=== PATIENT | female | born 1955 | race Hispanic/Latino ===

== ENCOUNTER 2017-11-07 10:05 | Inpatient (IN) | payer OTHER ==
[2017-11-07] MEDS ORDERED: Sodium Chloride 0.9% 1,000 ML IV STA ×2 (10:15→12:19)
[2017-11-07 10:25] VITALS: BMI 30.2
[2017-11-07 10:43] LABS: VENOUS BLOOD GAS BASE EXCESS 3.8 mmol/L (0.0-2.0); VENOUS BLOOD GAS PO2 43 mm/Hg (30-55); VENOUS BLOOD PH 7.54 (7.32-7.43)
[2017-11-07 10:56] LABS: ALT/SGPT 76 U/L (7-56); AST/SGOT 138 U/L (14-36); BLOOD UREA NITROGEN 15 mg/dL (7-21); CALCIUM 8.4 mg/dL (8.4-10.5); GFR AFRICAN-AMERICAN > 60; GFR NON-AFRICAN AMERICAN > 60
[2017-11-07] MEDS ORDERED: TDAP Vaccine 0.5 mL Syr IM ONE (10:58)
[2017-11-07 11:04] LABS: GRAN # 10.27 (1.4-6.5); GRAN % 92.8 % (50.0-68.0); HEMOGLOBIN 13.7 g/dL (12.0-16.0); LYMPH # 0.5 (1.2-3.4); LYMPH % 4.5 % (22.0-35.0); MEAN CELL VOLUME 89.9 fl (80.0-105.0); MEAN CORPUSCULAR HEMOGLOBIN 33.1 pg (25.0-35.0); MEAN CORPUSCULAR HGB CONC 36.8 g/dl (31.0-37.0); MONO # 0.3 (0.1-0.6); MONO % 2.7 % (1.0-6.0); PLATELET COUNT 146 10^3/uL (120.0-450.0); RBC 4.14 10^6/uL (3.5-6.1); RED CELL DISTRIBUTION WIDTH 13.7 % (11.5-14.5); WHITE BLOOD COUNT 11.1 10^3/ul (4.5-11.0)
[2017-11-07 11:07] LABS: TROPONIN I 0.02 ng/mL
[2017-11-07 11:13] LABS: INR 1.07 (0.93-1.08); PARTIAL THROMBOPLASTIN TIME 33.1 Seconds (25.1-36.5); PROTHROMBIN TIME 12.3 SECONDS (9.4-12.5)
--- NOTE | 2017-11-07 11:13 | ED PDOC ---
Arrival/HPI - General Chief Complaint: Weakness/Neurological Deficit Time Seen by Provider: 11/07/17 10:11 Historian: Patient, Family - History of Present Illness Narrative History of Present Illness (Text): 11/07/17 10:13 62 year old female, with past medical history of hypertension and recent URI nos on day 4 of Ceftin, presents to the Emergency department complaining of increasing malaise, weakness and somnolence since past few days. Patient informs associated diffused myalgia, decreased appetite and PO intake culminating in the family finding her with decreased responsiveness this morning. As per family, patient was getting out of her bed when she fell and hit her nose this morning. Due to patient's decreased hearing, most history was achieved from family. Family denies hitting her head or loss of consciousness. Patient expresses mild headache but denies any fever, chills, nausea, diarrhea, abdominal pain, chest pain, shortness of breath or any other complaints. Patient presents to the Emergency department for medical evaluation. Upon arrival to the Emergency department, patient had one episode of emesis. Time/Duration: < week Symptom Onset: Gradual Symptom Course: Unchanged Activities at Onset: Light Context: Home Past Medical History - Provider Review Nursing Documentation Reviewed: Yes - Cardiac Hx Hypertension: Yes - HEENT Hx Deafness: Yes - Psychiatric Hx Substance Use: No - Surgical History Hx Musculoskeletal Surgery: Yes (bilateral knees) Other/Comment: left ear and sinus Family/Social History - Physician Review Nursing Documentation Reviewed: Yes Family/Social History: No Known Family HX Smoking Status: Former Smoker Hx Alcohol Use: No Hx Substance Use: No Allergies/Home Meds Allergies/Adverse Reactions: Allergies Sulfa (Sulfonamide Antibiotics) Allergy (Verified 11/07/17 10:25) ANAPHYLAXIS Home Medications: Home Meds Medication Instructions Recorded Confirmed Triamterene/Hydrochlorothiazid 1 each PO DAILY 11/07/17 11/07/17 [Maxzide 75 mg-50 mg Tablet] Review of Systems - Physician Review All systems were reviewed & negative as marked: Yes - Review of Systems Constitutional: Normal. absent: Fevers Eyes: Normal ENT: Normal Respiratory: Normal. absent: SOB Cardiovascular: Normal. absent: Chest Pain Gastrointestinal: Vomiting. absent: Abdominal Pain, Diarrhea, Nausea Genitourinary Female: Normal Musculoskeletal: Myalgias, Other (general weakness and malaise.) Skin: Laceration, Other (abrasion on nose bridge) Neurological: Other (generalized weakness) Endocrine: Normal Hemo/Lymphatic: Normal Psychiatric: Normal Physical Exam Vital Signs Reviewed: Yes Vital Signs Temp Pulse Resp BP Pulse Ox 11/07/17 13:25 98.3 F 92 H 18 133/75 11/07/17 13:03 98.3 F 92 H 17 133/75 98 11/07/17 12:02 90 17 102/73 98 11/07/17 10:43 100.4 F H 11/07/17 10:11 100.4 F H 120 H 19 139/83 96 Temperature: Febrile Blood Pressure: Normal Pulse: Tachycardic Respiratory Rate: Normal Appearance: Positive for: Well-Appearing, Non-Toxic, Comfortable Pain Distress: None Mental Status: Positive for: Alert and Oriented X 3 Finger Stick Blood Glucose: 155 - Systems Exam Head: Present: Atraumatic, Normocephalic Pupils: Present: PERRL Extroacular Muscles: Present: EOMI Conjunctiva: Present: Normal Mouth: Present: Moist Mucous Membranes Nose (External): Present: Abrasion (bridge of her nose) Respiratory/Chest: Present: Clear to Auscultation, Good Air Exchange. No: Respiratory Distress, Accessory Muscle Use Cardiovascular: Present: Regular Rate and Rhythm, Normal S1, S2. No: Murmurs Abdomen: No: Tenderness, Distention, Peritoneal Signs Back: Present: Normal Inspection Upper Extremity: Present: Normal Inspection. No: Cyanosis, Edema Lower Extremity: Present: Normal Inspection. No: Edema Neurological: Present: GCS=15, CN II-XII Intact, Speech Normal Skin: Present: Warm, Dry, Normal Color. No: Rashes Psychiatric: Present: Alert, Oriented x 3, Normal Insight, Normal Concentration Medical Decision Making ED Course and Treatment: 11/07/17 10:13 Impression: 62 year old female presents to the Emergency department for generalized weakness and malaise. Plan: -- CT of Head -- VBG -- EKG -- Labs -- Chest X-ray -- TDAP -- IV Fluids -- Tylenol -- Zofran -- Blood Culture -- Urine Culture -- Urinalysis -- Rapid flu A/B -- Reassess and disposition Progress Notes: 11/07/17 12:12 CT of head reviewed by radiologist, shows: FINDINGS: HEMORRHAGE: No intracranial hemorrhage. BRAIN: No mass effect or edema. No atrophy or chronic microvascular ischemic changes. VENTRICLES: Unremarkable. No hydrocephalus. CALVARIUM: Unremarkable. PARANASAL SINUSES: Unremarkable as visualized. No significant inflammatory changes. MASTOID AIR CELLS: Unremarkable as visualized. No inflammatory changes. OTHER FINDINGS: None. IMPRESSION: No acute intracranial abnormalities. No significant findings to account for the clinical presentation. 11/07/17 14:05 Chest X-ray reviewed by radiologist, shows: FINDINGS: LUNGS: No active pulmonary disease. PLEURA: No significant pleural effusion identified, no pneumothorax apparent. CARDIOVASCULAR: No radiographic findings to suggest acute or significant cardiovascular disease. OSSEOUS STRUCTURES: No significant abnormalities. VISUALIZED UPPER ABDOMEN: Normal. OTHER FINDINGS: None. IMPRESSION: No active disease. 11/07/17 17:35 ekg: afib w/ rvr noischemic st-t segments, non-arrythmogenic intervals - Lab Interpretations Lab Results: 11/07/17 10:39 11/07/17 10:39 Lab Results 11/07/17 10:39: Sodium 126 L, Chloride 88 L, Potassium 3.0 L, Carbon Dioxide 24 , Anion Gap 17, BUN 15, Creatinine 0.9, Est GFR ( Amer) > 60, Est GFR ( Non-Af Amer) > 60, Random Glucose 166 H, Calcium 8.4, Magnesium 1.7, Total Bilirubin 0.5, AST 138 H, ALT 76 H, Alkaline Phosphatase 76, Lactate Dehydrogenase 822 H, Total Creatine Kinase 302 H, CK-MB (CK-2) 0.4, CK-MB (CK-2 ) % Cancelled, Troponin I 0.02, Total Protein 8.0, Albumin 4.0, Globulin 4.0, Albumin/Globulin Ratio 1.0 L 11/07/17 10:39: pO2 43, VBG pH 7.54 H, VBG pCO2 30.0 L, VBG HCO3 25.7, VBG Total CO2 26.6, VBG O2 Sat (Calc) 89.3 H, VBG Base Excess 3.8 H, VBG Potassium 2.7 L, Sodium 123.0 L, Chloride 89.0 L, Glucose 166 H, Lactate 1.9, FiO2 21.0, Venous Blood Potassium 2.7 L 11/07/17 10:39: PT 12.3, INR 1.07, APTT 33.1 11/07/17 10:39: WBC 11.1 H, RBC 4.14, Hgb 13.7, Hct 37.2, MCV 89.9, MCH 33.1, MCHC 36.8, RDW 13.7, Plt Count 146, MPV 10.0, Gran % 92.8 H, Lymph % (Auto) 4.5 L, Callahan % (Auto) 2.7, Eos % (Auto) 0.0 L, Baso % (Auto) 0.0, Gran # 10.27 H, Lymph # (Auto) 0.5 L, Callahan # (Auto) 0.3, Eos # (Auto) 0.0, Baso # (Auto) 0.00, Neutrophils % (Manual) 90 H, Band Neutrophils % 3 H, Lymphocytes % (Manual) 6 L , Monocytes % (Manual) 1, Toxic Granulation Slight, Platelet Evaluation Normal, Anisocytosis (manual) Slight - RAD Interpretation Radiology Orders: 11/07/17 10:15 CHEST PORTABLE [RAD] Stat 11/07/17 10:58 HEAD W/O CONTRAST [CT] Stat Batter Depositor: Radiologist - Medication Orders Current Medication Orders: Ceftriaxone Sodium (Rocephin 1 Gram Ivpb) 1 gm in 100 mls @ 100 mls/hr IVPB ONCE ONE PRN Reason: Protocol Stop: 11/08/17 13:03 Sodium Chloride (Sodium Chloride 0.9%) 1,000 mls @ 80 mls/hr IV .[id number] [facility] Metoprolol Tartrate (Lopressor) 25 mg PO BRKDIN CORINE Discontinued Medications Acetaminophen (Tylenol 325mg Tab) 975 mg PO STAT STA Stop: 11/07/17 10:17 Last Admin: 11/07/17 10:43 Dose: 975 mg MAR Pain/Vitals Document 11/07/17 10:43 [facility] (Rec: 11/07/17 10:43 [facility] [id number]) Pain Reassessment Is This A Pain ReAssessment? No Sleep Is patient sleeping during reassessment? No Presence of Pain Presence of Pain No Vitals Temperature (97.6 F-99.6 F) 100.4 F Temperature Source Oral Sodium Chloride (Sodium Chloride 0.9%) 1,000 mls @ 999 mls/hr IV .Q1H1M STA Stop: 11/07/17 11:15 Last Admin: 11/07/17 10:57 Dose: 999 mls/hr eMAR Start Stop Document 11/07/17 10:57 [facility] (Rec: 11/07/17 10:57 [facility] [id number]) Intravenous Solution Start Date 11/07/17 Start Time 10:57 End Date 11/07/17 End time 12:00 Total Infusion Time 63 Doxycycline Hyclate 100 mg/ (Sodium Chloride) 100 mls @ 100 mls/hr IVPB ONCE ONE PRN Reason: Protocol Stop: 11/07/17 13:05 Last Admin: 11/07/17 12:26 Dose: 100 mls/hr eMAR Start Stop Document 11/07/17 12:26 [facility] (Rec: 11/07/17 12:27 [facility] [id number]) Intravenous Solution Start Date 11/07/17 Start Time 12:27 End Date 11/07/17 End time 13:30 Total Infusion Time 63 Potassium Chloride (Potassium Chloride 20 Meq/100 Ml) 20 meq in 100 mls @ 50 mls/hr IVPB ONCE ONE Stop: 11/07/17 14:16 Last Admin: 11/07/17 12:27 Dose: 50 mls/hr eMAR Start Stop Document 11/07/17 12:27 [facility] (Rec: 11/07/17 12:27 [facility] [id number]) Intravenous Solution Start Date 11/07/17 Start Time 12:27 End Date 11/07/17 End time 14:30 Total Infusion Time 123 Sodium Chloride (Sodium Chloride 0.9%) 1,000 mls @ 999 mls/hr IV .Q1H1M STA Stop: 11/07/17 13:19 Last Admin: 11/07/17 12:28 Dose: 999 mls/hr eMAR Start Stop Document 11/07/17 12:28 [facility] (Rec: 11/07/17 12:28 [facility] [id number]) Intravenous Solution Start Date 11/07/17 Start Time 12:28 End Date 11/07/17 End time 13:30 Total Infusion Time 62 Sodium Chloride (Sodium Chloride 0.9%) 100 mls @ 80 mls/hr IV .Q1H15M [facility] Ondansetron HCl (Zofran Inj) 4 mg IVP STAT STA Stop: 11/07/17 10:49 Last Admin: 11/07/17 10:59 Dose: 4 mg IVP Administration Document 11/07/17 10:59 [facility] (Rec: 11/07/17 10:59 [facility] [id number]) Charges for Administration # of IVP Administrations 1 Potassium Chloride (Potassium Chloride Oral Soln) 40 meq PO STAT STA Stop: 11/07/17 12:08 Last Admin: 11/07/17 12:22 Dose: 40 meq Tetanus/Reduced Diphtheria/Acell Pertussis (Boostrix Vaccine Inj) 0.5 ml IM .ONCE ONE Stop: 11/07/17 10:59 - Scribe Statement The provider has reviewed the documentation as recorded by the Scribe Concetta Abdul. All medical record entries made by the Scribe were at my direction and personally dictated by me. I have reviewed the chart and agree that the record accurately reflects my personal performance of the history, physical exam, medical decision making, and the department course for this patient. I have also personally directed, reviewed, and agree with the discharge instructions and disposition. Disposition/Present on Arrival - Present on Arrival Any Indicators Present on Arrival: No History of DVT/PE: No History of Uncontrolled Diabetes: No Urinary Catheter: No History of Decub. Ulcer: No History Surgical Site Infection Following: None - Disposition Have Diagnosis and Disposition been Completed?: Yes Diagnosis: Upper respiratory infection, Syncope and collapse, New onset a-fib Disposition: HOSPITALIZED Disposition Time: 14:15 Patient Plan: Admission, Telemetry Condition: FAIR
[2017-11-07 11:14] LABS: CK-MB 0.4 ng/mL (0.0-3.6)
[2017-11-07 11:45] LABS: ANISOCYTOSIS SLIGHT; BAND 3 % (0-2); LYMPHOCYTE 6 % (22.0-35.0); MONOCYTE 1 % (1.0-6.0); NEUTROPHIL 90 % (50.0-70.0); PLATELET ESTIMATE NORMAL (NORMAL); TOXIC GRANULATION SLIGHT
[2017-11-07] MEDS ORDERED: Potassium Chloride 40 mEq/30 ml LIQ UD PO STA (12:07)
--- NOTE | 2017-11-07 12:08 | CT ---
PROCEDURE: CT HEAD WITHOUT CONTRAST. HISTORY: trauma COMPARISON: None available. TECHNIQUE: Axial computed tomography images were obtained through the head/brain without intravenous contrast. Coronal and sagittal reconstructed images. Radiation dose: Total exam DLP = 87.24 mGy-cm. This CT exam was performed using one or more of the following dose reduction techniques: Automated exposure control, adjustment of the mA and/or kV according to patient size, and/or use of iterative reconstruction technique. FINDINGS: HEMORRHAGE: No intracranial hemorrhage. BRAIN: No mass effect or edema. No atrophy or chronic microvascular ischemic changes. VENTRICLES: Unremarkable. No hydrocephalus. CALVARIUM: Unremarkable. PARANASAL SINUSES: Unremarkable as visualized. No significant inflammatory changes. MASTOID AIR CELLS: Unremarkable as visualized. No inflammatory changes. OTHER FINDINGS: None. IMPRESSION: No acute intracranial abnormalities. No significant findings to account for the clinical presentation.
--- NOTE | 2017-11-07 12:35 | RAD ---
HISTORY: routin emed exam COMPARISON: No prior. FINDINGS: LUNGS: No active pulmonary disease. PLEURA: No significant pleural effusion identified, no pneumothorax apparent. CARDIOVASCULAR: No radiographic findings to suggest acute or significant cardiovascular disease. OSSEOUS STRUCTURES: No significant abnormalities. VISUALIZED UPPER ABDOMEN: Normal. OTHER FINDINGS: None. IMPRESSION: No active disease.
--- NOTE | 2017-11-07 13:03 | CARD ---
APPROVED REPORT EKG Measurement Heart [id number] <Conclusion> Atrial fibrillation with rapid ventricular response ST & T wave abnormality, consider inferior ischemia or digitalis effect Abnormal ECG
[2017-11-07] MEDS ORDERED: Sodium Chloride 0.9% 100 ML IV SCH (16:30)
[2017-11-07 16:44] LABS: URINE BILIRUBIN NEGATIVE (NEGATIVE); URINE BLOOD LARGE (NEGATIVE); URINE GLUCOSE (UA) NEGATIVE (NEGATIVE); URINE LEUKOCYTE ESTERASE NEGATIVE Leu/uL (NEGATIVE); URINE PROTEIN >=300 mg/dL (<30 mg/dL); URINE UROBILINOGEN 0.2 E.U./dL (<1 E.U./dL)
[2017-11-07 16:46] LABS: URINE APPEARANCE CLEAR (CLEAR); URINE COLOR YELLOW (YELLOW)
[2017-11-07 17:08] LABS: URINE COARSE GRANULAR CAST TRACE /hpf (0-2); URINE FINE GRANULAR CAST 0 - 2 /hpf (0-2)
[2017-11-07 17:32] LABS: TROPONIN I 0.02 ng/mL
[2017-11-07] MEDS: Sodium Chloride 0.9% 1,000 ML IV SCH (17:33)
[2017-11-07 17:44] LABS: CK-MB 0.9 ng/mL (0.0-3.6)
[2017-11-07] MEDS: Meropenem IV 1 gm in NS 50 ML IVPB SCH ×2 (18:56→21:53)
[2017-11-07] MEDS: Vancomycin 1gm in NS 250ml 1 GM/250 ML BAG IVPB SCH (19:06)
--- NOTE | 2017-11-08 00:37 | HP ---
DATE OF EXAM: 11/07/2017 HISTORY OF PRESENT ILLNESS: The patient is seen in the emergency room. She was brought in by her . She was this morning very weak. She had no appetite and she could not eat. She was feeling very dizzy and she was nauseous and the patient has hearing deficit, but it has got worse. The patient was hardly able to hear anything and the patient was brought to the emergency room for evaluation. The emergency room physician found her to be very lethargic. She has had a fall and abrasion of the anterior part of the nose, the skin abrasion. The patient has no head injury. PAST MEDICAL HISTORY: Significant that she has history of hypertension. She takes Maxzide, is a dual diuretic, potassium-sparing diuretic. The patient also takes medication for acute sinusitis and otitis. She was on Ceftin 500 mg b.i.d. The patient's past history is significant that she also had history of both knees arthroscopic surgery. The patient has had some surgical orthopedic treatment for both hands, questionable carpal tunnel. ALLERGIES: SHE IS ALLERGIC TO SULFA DRUGS, . PHYSICAL EXAMINATION GENERAL: The patient is evaluated in the ER. She is awake and alert. She is on intravenous. She is given intravenous sodium with potassium supplement. She feels better she said at this time. VITAL SIGNS: The pulse is 92, blood pressure 133/75, the patient's respirations 18, O2 saturation is 98% on room air. The patient's temperature is 98.3. The patient came in with a temperature of 100.4. She was septic and heart rate of 120 when she came into the emergency room. HEENT: Head is normocephalic as mentioned. NECK: The thyroid is not enlarged. JVP is flat. Carotid pulses are present. No lymphadenopathy. LUNGS: Trachea is central. Breath sounds are vesicular. No adventitious sound. No localizing signs. HEART: Normal sinus rhythm, S1, S2 present. Sinus tachycardia. ABDOMEN: Soft. Liver and spleen not palpable. CENTRAL NERVOUS SYSTEM: The patient is conscious, rational and oriented. She is deaf clinically at this time, unable to hear any speech. NEUROLOGIC: The patient's cranial nerves are intact Motor or sensory functions are okay. She is very unstable on standing because of her weakness. LABORATORY DATA: The patient's blood work done in the emergency room shows that sodium was 126, potassium was 3.0, sugar was 166. The patient's lactate dehydrogenase was 822 . Creatinine was . The patient's AST and ALT were elevated. The patient's albumin level is 4. The patient's CBC showed a white count of 11,000 with shift to the left, 92% polymorphonuclear leukocytes (granulocytes). This is suggestive of an infection. The source of infection is probably in the lung and also the ear. IMPRESSION AND PLAN: The patient is placed on antibiotic, IV fluids, potassium supplement and we will have ENT consult for the patient and we will follow up repeat troponin level which was borderline elevated and does not represent cardiac manifestation at this time. EKG findings: The patient has atrial fibrillation. This is a new finding. The patient has not had this cardiac arrhythmia in the past. The patient's chest x-ray findings, no acute findings. As mentioned, there is some suggestion of chronic bronchitis may be. We will repeat the EKG and we will have a cardiac evaluation for new finding of atrial fibrillation at this time. The patient is going to be admitted to telemetry. She will be monitored. We will continue with antibiotics, IV fluids and we will follow up. Facundo Rodriguez MD
[2017-11-08] MEDS: Meropenem IV 1 gm in NS 50 ML IVPB SCH ×3 (05:03→22:30)
[2017-11-08] MEDS: Vancomycin 1gm in NS 250ml 1 GM/250 ML BAG IVPB SCH ×2 (06:01→18:13)
[2017-11-08 06:32] LABS: GRAN # 7.07 (1.4-6.5); GRAN % 90.7 % (50.0-68.0); LYMPH # 0.5 (1.2-3.4); LYMPH % 6.4 % (22.0-35.0); MEAN CORPUSCULAR HEMOGLOBIN 32.1 pg (25.0-35.0); MEAN CORPUSCULAR HGB CONC 35.2 g/dl (31.0-37.0); MEAN PLATELET VOLUME 10.6 fl (7.0-11.0); MONO # 0.2 (0.1-0.6); MONO % 2.9 % (1.0-6.0); RBC 3.65 10^6/uL (3.5-6.1); RED CELL DISTRIBUTION WIDTH 14.2 % (11.5-14.5); WHITE BLOOD COUNT 7.8 10^3/ul (4.5-11.0)
[2017-11-08 06:50] LABS: HEMOGLOBIN 11.7 g/dL (12.0-16.0)
[2017-11-08 07:41] LABS: BLOOD UREA NITROGEN 12 mg/dL (7-21); CALCIUM 7.5 mg/dL (8.4-10.5); GFR AFRICAN-AMERICAN > 60; GFR NON-AFRICAN AMERICAN > 60
[2017-11-08] MEDS ORDERED: Potassium Chloride 20 mEq ER Tab PO ONE (07:45)
--- NOTE | 2017-11-08 09:29 | MRI ---
PROCEDURE: MRI BRAIN WITHOUT CONTRAST HISTORY: change of mental status COMPARISON: None. TECHNIQUE: Multiplanar, multisequence MR images of the brain were obtained without intravenous contrast enhancement. FINDINGS: HEMORRHAGE: None DWI: No evidence of an acute or early subacute infarction. BRAIN PARENCHYMA: No mass effect or edema. Multiple foci of white matter signal abnormality compatible with chronic microvascular ischemic disease. VENTRICLES: Unremarkable. No hydrocephalus. CRANIUM: Unremarkable. ORBITS: Grossly unremarkable. PARANASAL SINUSES/MASTOIDS: Clear VASCULAR SYSTEM: Skull base flow voids intact. OTHER FINDINGS: None. IMPRESSION: Multiple foci of white matter signal abnormality compatible with chronic microvascular ischemic disease.
--- NOTE | 2017-11-08 10:17 | US ---
HISTORY: elevated liver enzymes COMPARISON: Right-sided thyroid nodules measuring 7 millimeters TECHNIQUE: Sonographic evaluation of the abdomen. FINDINGS: LIVER: Measures cm. Increased echogenicity of the liver parenchyma. No mass. No intrahepatic bile duct dilatation. GALLBLADDER: Unremarkable. No gallstones. COMMON BILE DUCT: Measures mm. No stones. No dilatation. PANCREAS: Unremarkable as visualized. No mass. No ductal dilatation. RIGHT KIDNEY: Measures cm. Normal echogenicity. No calculus, mass, or hydronephrosis. LEFT KIDNEY: Measures cm. Normal echogenicity. No calculus, mass, or hydronephrosis. SPLEEN: Normal in size and contour. No mass. AORTA: No aneurysmal dilatation. IVC: Unremarkable. OTHER FINDINGS: Small right pleural effusion. IMPRESSION: Small right pleural effusion. Increased hepatic echogenicity compatible with fibro/fatty infiltration.
--- NOTE | 2017-11-08 11:21 | CARD ---
APPROVED REPORT EKG Measurement Heart [id number] <Conclusion> Sinus tachycardia with premature supraventricular complexes Somatic Tremors.
[2017-11-08] MEDS ORDERED: cefTRIAXone 1 gm 1 GM/100 ML BAG IVPB ONE (12:04)
[2017-11-08] MEDS: Sodium Chloride 0.9% 1,000 ML IV SCH ×2 (12:15→18:10)
[2017-11-08 12:50] LABS: HEPATITIS B SURFACE AG Negative (NEGATIVE)
[2017-11-08 12:56] LABS: HEPATITIS A IGM NEGATIVE (NEGATIVE); HEPATITIS B CORE AB NEGATIVE (NEGATIVE)
[2017-11-08 13:07] LABS: HEPATITIS C ANTIBODY NEGATIVE (NEGATIVE)
--- NOTE | 2017-11-08 13:12 | PN ---
DATE: 11/08/2017 LOCATION: The patient is in [facility] in [place], room 271, bed 1. SUBJECTIVE: The patient is a 62-year-old white female. She was brought in to the emergency room by . She was weak. She had a fall, has had mild laceration on the nose. The patient was feeling weak. The patient also was having difficulty in eating and drinking any fluids. The patient was evaluated in the Emergency Room. She was found to be septic. Temperature was 102.3 at the time of admission. The patient's evaluation showed the patient had an infection in the ear; possibly, the patient has a questionable meningitis according to the Infectious Disease service. Dr. Vaughn evaluated the patient's condition. PHYSICAL EXAMINATION: VITAL SIGNS: This morning, the pulse is 98, blood pressure 110/70. The patient's respirations are 20, O2 sat is 98% on room air. Her temperature is 99.8. GENERAL: The patient is awake and alert. She has poor hearing. She has had chronic otitis media and has developed chronic illness resulting in hearing loss. The patient has past history of hypertension. She was treated with dual diuretic, potassium-sparing. The patient is pending an MRI this morning. MEDICATIONS: At this time, the patient is on meropenem, acyclovir, Rocephin, vancomycin. We will continue current management until further evaluation. The laboratory test results; white count is 7800. Differential shows 90% . The patient's chemistry is with abnormal liver enzymes. CPK and LDH are also elevated. The patient's troponin level was 0.02, but the patient does not have any evidence of coronary artery disease at this time. We will continue current management and we will follow up. . Facundo Rodriguez MD
--- NOTE | 2017-11-08 17:08 | CP.PCM.CON ---
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 She had some muscle aches, denies nausea or vomiting, no headache or dizziness, no abdominal pain, no diarrhea, no dysuria, no dysphagia, cough. She was being treated with Ceftin for the past 2-3 days by her PMD but she continues to have the symptoms. The patient denies recent travel outside of [place] this year, denies animal contacts, denies insect bites. Infectious Diseases consult is requested to further evaluate and manage. Review of Systems - Review of Systems All systems: reviewed and no additional remarkable complaints except (as per HPI ) Past Patient History - Past Social History Smoking Status: Former Smoker - CARDIAC Hx Hypertension: Yes - HEENT Hx Deafness: Yes - MUSCULOSKELETAL/RHEUMATOLOGICAL Hx Falls: Yes - PSYCHIATRIC Hx Substance Use: No - SURGICAL HISTORY Hx Musculoskeletal Surgery: Yes (bilateral knees) Other/Comment: left ear and sinus Meds Allergies/Adverse Reactions: Allergies Allergy/AdvReac Type Severity Reaction Status Date / Time Sulfa (Sulfonamide Allergy ANAPHYLAXIS Verified 11/07/17 10:25 Antibiotics) - Medications Medications: Current Medications Acetaminophen (Tylenol 325mg Tab) 650 mg PO Q4H PRN PRN Reason: Fever >100.4 F Last Admin: 11/07/17 23:21 Dose: 650 mg Ceftriaxone Sodium (Rocephin 1 Gram Ivpb) 1 gm in 100 mls @ 100 mls/hr IVPB ONCE ONE PRN Reason: Protocol Stop: 11/08/17 13:03 Sodium Chloride (Sodium Chloride 0.9%) 1,000 mls @ 80 mls/hr IV .[id number] [facility] Last Admin: 11/07/17 17:33 Dose: 80 mls/hr Meropenem (Merrem Iv 1 Gm Premix) 50 mls @ 100 mls/hr IVPB Q8 [facility] PRN Reason: Protocol Stop: 11/16/17 18:37 Last Admin: 11/08/17 05:03 Dose: 100 mls/hr Vancomycin HCl (Vancomycin 1gm) 1 gm in 250 mls @ 167 mls/hr IVPB Q12H [facility] PRN Reason: Protocol Stop: 11/16/17 18:46 Last Admin: 11/08/17 06:01 Dose: 167 mls/hr Acyclovir 750 mg/ Sodium (Chloride) 100 mls @ 100 mls/hr IV Q8 [facility] PRN Reason: Protocol Stop: 11/16/17 19:01 Last Admin: 11/08/17 05:05 Dose: 100 mls/hr Metoprolol Tartrate (Lopressor) 25 mg PO BRKDIN [facility] Last Admin: 11/07/17 17:33 Dose: 25 mg Physical Exam - Constitutional Appears: Chronically Ill - Head Exam Head Exam: NORMAL INSPECTION - Neck Exam Neck exam: Negative for: Lymphadenopathy, Meningismus - Respiratory Exam Respiratory Exam: Decreased Breath Sounds - Cardiovascular Exam Cardiovascular Exam: +S1, +S2 - GI/Abdominal Exam GI & Abdominal Exam: Soft. absent: Tenderness Results - Vital Signs Recent Vital Signs: Last Vital Signs Temp 99.8 F H 11/08/17 05:59 Pulse 98 H 11/08/17 05:59 Resp 20 11/08/17 05:59 BP 109/67 11/08/17 05:59 Pulse Ox 98 11/08/17 05:59 - Labs Result Diagrams: 11/08/17 06:00 11/08/17 06:00 Labs: Laboratory Results - last 24 hr 11/07/17 11/07/17 16:26 16:59 Lactate Dehydrogenase 811 H Total Creatine Kinase 317 H CK-MB (CK-2) 0.9 CK-MB (CK-2) % Cancelled Troponin I 0.02 Urine Color Yellow Urine Appearance Clear Urine pH 6.0 Ur Specific [place] 1.025 Urine Protein >=300 H Urine Glucose (UA) Negative Urine Ketones Negative Urine Blood Large H Urine Nitrate Negative Urine Bilirubin Negative Urine Urobilinogen 0.2 Ur Leukocyte Esterase Negative Urine RBC 10 - 15 Urine WBC 1 - 3 Ur Epithelial Cells 1 - 3 Fine Granular Casts 0 - 2 Coarse Granular Casts Trace H Assessment & Plan - Assessment and Plan (Free Text) Plan: Assessment Systemic inflammatory response syndrome with acute encephalopathy, R/O severe sepsis from acute meningoencephalitis, in this patient with history of otitis media and mastoiditis HTN history of left ear deafness Plan Patient started on Vancomycin and Merrem and Acyclovir pending blood, urine cx; patient has no travel history making Rickettsial disease unlikely; folllow up brain MRI and Neuro evaluation - would request lumbar puncture for CSF analysis for bacterial cultures, protein, glucose, WBC's and RBC's, CSF VDRL, Crypt Ag CXR does not show infiltrates patient with transaminitis - will request CMV PCR and HSV serologies will monitor clinically will get HIV test because of her age
--- NOTE | 2017-11-08 23:16 | CON ---
DATE: 11/08/2017 HISTORY OF PRESENT ILLNESS: This is a 62-year-old female who is very hard of hearing and history from the . The patient had hit her face on the ground and had an abrasion on the nose and found to be lethargic. The patient does not have a head injury, no loss of consciousness. PAST MEDICAL HISTORY: Hypertension, sinusitis, status post knee arthroscopic surgery. ALLERGIES: SULFA. PHYSICAL EXAMINATION: HEENT: Normocephalic and atraumatic. NECK: Supple. NEUROLOGIC: Hard of hearing. Cranial nerves II through XII are tested. Pupils reactive. Spontaneous movement of the extremities noted. Deep tendon reflexes 1+. Both plantars are downgoing. Cerebellar gait deferred. IMPRESSION: Fall. Head CAT scan was done and MRI did not show any new lesions. The patient had intermittent confusional state with deafness and difficulty ambulating. Recommends physical therapy for strengthening. Slight electrolyte abnormality, hyponatremia, and hypokalemia. Workup in progress. Continue present management. We will follow up. Robert Jauregui MD
[2017-11-09] MEDS: Meropenem IV 1 gm in NS 50 ML IVPB SCH ×3 (05:45→22:38)
[2017-11-09] MEDS: Vancomycin 1gm in NS 250ml 1 GM/250 ML BAG IVPB SCH ×2 (05:46→17:46)
[2017-11-09 06:24] LABS: GRAN # 5.81 (1.4-6.5); GRAN % 88.6 % (50.0-68.0); HEMOGLOBIN 11.1 g/dL (12.0-16.0); LYMPH # 0.6 (1.2-3.4); LYMPH % 8.5 % (22.0-35.0); MEAN CELL VOLUME 90.2 fl (80.0-105.0); MEAN CORPUSCULAR HEMOGLOBIN 32.1 pg (25.0-35.0); MEAN CORPUSCULAR HGB CONC 35.6 g/dl (31.0-37.0); MEAN PLATELET VOLUME 10.8 fl (7.0-11.0); MONO # 0.2 (0.1-0.6); MONO % 2.9 % (1.0-6.0); RBC 3.46 10^6/uL (3.5-6.1); RED CELL DISTRIBUTION WIDTH 14.5 % (11.5-14.5); WHITE BLOOD COUNT 6.6 10^3/ul (4.5-11.0)
[2017-11-09 06:52] LABS: TROPONIN I 0.02 ng/mL
[2017-11-09 06:53] LABS: LDL CHOLESTEROL 65 mg/dL (0-129)
[2017-11-09 07:25] LABS: ALB/GLOB RATIO 0.9 (1.1-1.8); ALBUMIN 2.9 g/dL (3.0-4.8); ALT/SGPT 138 U/L (7-56); AST/SGOT 235 U/L (14-36); BLOOD UREA NITROGEN 9 mg/dL (7-21); CALCIUM 7.6 mg/dL (8.4-10.5); GFR AFRICAN-AMERICAN > 60; GFR NON-AFRICAN AMERICAN > 60; HDL CHOLESTEROL 22 mg/dL (29-60)
[2017-11-09 07:36] LABS: CK-MB 0.7 ng/mL (0.0-3.6)
[2017-11-09] MEDS ORDERED: Alum-Mag Hydrox-Simethicone Susp (30 mL) PO PRN (07:46)
--- NOTE | 2017-11-09 07:54 | CP.PCM.PN ---
Subjective - Date & Time of Evaluation Date of Evaluation: 11/09/17 Time of Evaluation: 07:30 - Subjective Subjective: Patient is seen this morning in room 271 bed 1. She continues to have fevers and is sweating. She has poor appetite according to the . She denies abdominal pain. Objective - Vital Signs/Intake and Output Vital Signs (last 24 hours): Temp Pulse Resp BP Pulse Ox 100.5 F H 109 H 21 131/76 95 11/09/17 06:00 11/09/17 06:00 11/09/17 06:00 11/09/17 06:00 11/09/17 06:00 Intake and Output: 11/09/17 11/09/17 06:59 18:59 Intake Total 240 Balance 240 - Medications Medications: Current Medications Acetaminophen (Tylenol 325mg Tab) 650 mg PO Q4H PRN PRN Reason: Fever >100.4 F Last Admin: 11/09/17 05:48 Dose: 650 mg Al Hydrox/Mg Hydrox/Simethicone (Maalox Plus 30 Ml) 30 ml PO DAILY PRN PRN Reason: Indigestion / Heartburn Fluticasone Propionate (Flonase) 2 actuation NS DAILY [facility] Sodium Chloride (Sodium Chloride 0.9%) 1,000 mls @ 80 mls/hr IV .[id number] [facility] Last Admin: 11/08/17 18:10 Dose: Not Given Meropenem (Merrem Iv 1 Gm Premix) 50 mls @ 100 mls/hr IVPB Q8 [facility] PRN Reason: Protocol Stop: 11/16/17 18:37 Last Admin: 11/09/17 05:45 Dose: 100 mls/hr Vancomycin HCl (Vancomycin 1gm) 1 gm in 250 mls @ 167 mls/hr IVPB Q12H [facility] PRN Reason: Protocol Stop: 11/16/17 18:46 Last Admin: 11/09/17 05:46 Dose: 167 mls/hr Acyclovir 750 mg/ Sodium (Chloride) 100 mls @ 100 mls/hr IV Q8 [facility] PRN Reason: Protocol Stop: 11/16/17 19:01 Last Admin: 11/09/17 05:46 Dose: 100 mls/hr Metoprolol Tartrate (Lopressor) 25 mg PO BRKDIN [facility] Last Admin: 11/08/17 18:13 Dose: 25 mg Pantoprazole Sodium (Protonix Ec Tab) 40 mg PO 0600 [facility] - Labs Labs: 11/09/17 06:00 11/09/17 06:00 PT 12.3 SECONDS (9.4-12.5) 11/07/17 10:39 INR 1.07 (0.93-1.08) 11/07/17 10:39 APTT 33.1 Seconds (25.1-36.5) 11/07/17 10:39 - Constitutional Appears: No Acute Distress - Head Exam Head Exam: ATRAUMATIC, NORMOCEPHALIC - Respiratory Exam Respiratory Exam: Clear to Ausculation Bilateral, NORMAL BREATHING PATTERN - Cardiovascular Exam Cardiovascular Exam: Tachycardia, +S1, +S2 - GI/Abdominal Exam GI & Abdominal Exam: Soft, Normal Bowel Sounds. absent: Tenderness - Neurological Exam Neurological Exam: Alert, Awake, Oriented x3 Assessment and Plan - Assessment and Plan (Free Text) Assessment: Fever Elevated liver enzymes Hyponatremia - resolved Hypokalemia HTN Plan: Patient is seen this morning. Liver enzymes and LDH continue to rise. Patient denies abdominal pain. Will consult GI. R/O viral hepatitis vs. alcoholic hepatitis. Hepatitis panel is negative. CMV serology is pending. Ultrasound abdomen shows fatty liver. Patient continues to have fever. continue IV antibiotics as per infectious disease. Patient hasbeen seen by neurology. MRI Brain shows chronic microvascular ischemic changes. No acute abnormalities were seen. continue IV fluids. Will supplement potassium. check iron, B12, folate and TSH.
[2017-11-09] MEDS: Sodium Chloride 0.9% 1,000 ML IV SCH (07:56)
[2017-11-09 08:08] LABS: IRON 20 ug/dL (45-180)
[2017-11-09 08:17] LABS: % IRON SATURATION 12 % (20-55); TOTAL IRON BINDING CAPACITY 168 ug/dL (265-497)
[2017-11-09 08:25] LABS: FREE T4 1.3 ng/dL (0.78-2.19)
[2017-11-09] MEDS: Fluticasone Nasal 50 mcg/Spray NS SCH (09:01)
--- NOTE | 2017-11-09 16:20 | CP.PCM.CON ---
History of Present Illness - History of Present Illness History of Present Illness: Seen and examined at the bedside earlier today, chart review. at bedside. Request for GI consult is for elevated liver enzymes and poor appetite. HPI: This is a 62-year-old female with a past medical history of left ear deafness,brought to the emergency room by family for reports of patient feeling weak , muscle ache, and dizzy, patient according to the passed out on her face and having decreased appetite since Wednesday, they had gone out to eat and patient did not eat much, prior to complaints patient had good appetite. The patient at the bedside offering medical history as well as patient. On patient saw her doctor who prescribed oral antibiotics. Patient was noted to be sleeping all day.The following days the patient was more weak, only able to tolerate liquids and not eating solids. On Wednesday morning the patient passed out and fell flat on her face as per . No complaints of any nausea, abdominal pain, diarrhea or overt GI bleed. In fact the patient was having abdominal cramps prior to my arrival but had a good bowel movement with relief. No reports of any diarrhea or bleeding. Patient also been having fevers, on admission patient had a head CT which was negative for infarct or bleed, Brain MRI done and reporting chronic microvascular ischemic changes. Chest x-ray was done which was negative for active disease. On admission patient blood work is noted to have elevated liver enzymes particularly AST/ALT, LDH also elevated. No history of infectious hepatitis and abdominal US reveald fatty liver. Patient has never had endoscopy or colonoscopy. Past medical history: Hypertension, left ear deafness Past surgical history arthroscopic surgery of both knees and questionable carpal tunnel surgery Allergies: Sulfa Social history: Drinks alcohol socially but can drink excessively, denies tobacco use or illicit drugs Medications: Reviewed as per MAR Family history: Noncontributory this time ROS: Systems reviewed a positive finding see HPI Past Patient History - Past Social History Smoking Status: Former Smoker - CARDIAC Hx Hypertension: Yes - HEENT Hx Deafness: Yes - HEMATOLOGICAL/ONCOLOGICAL Hx Cancer: No - MUSCULOSKELETAL/RHEUMATOLOGICAL Hx Falls: Yes - PSYCHIATRIC Hx Substance Use: No - SURGICAL HISTORY Hx Musculoskeletal Surgery: Yes (bilateral knees) Other/Comment: left ear and sinus Meds Allergies/Adverse Reactions: Allergies Allergy/AdvReac Type Severity Reaction Status Date / Time Sulfa (Sulfonamide Allergy ANAPHYLAXIS Verified 11/07/17 10:25 Antibiotics) - Medications Medications: Current Medications Acetaminophen (Tylenol 325mg Tab) 650 mg PO Q4H PRN PRN Reason: Fever >100.4 F Last Admin: 11/09/17 05:48 Dose: 650 mg Al Hydrox/Mg Hydrox/Simethicone (Maalox Plus 30 Ml) 30 ml PO DAILY PRN PRN Reason: Indigestion / Heartburn Fluticasone Propionate (Flonase) 2 actuation NS DAILY [facility] Last Admin: 11/09/17 09:01 Dose: 2 spr Sodium Chloride (Sodium Chloride 0.9%) 1,000 mls @ 80 mls/hr IV .[id number] [facility] Last Admin: 11/09/17 07:56 Dose: Not Given Meropenem (Merrem Iv 1 Gm Premix) 50 mls @ 100 mls/hr IVPB Q8 [facility] PRN Reason: Protocol Stop: 11/16/17 18:37 Last Admin: 11/09/17 05:45 Dose: 100 mls/hr Vancomycin HCl (Vancomycin 1gm) 1 gm in 250 mls @ 167 mls/hr IVPB Q12H [facility] PRN Reason: Protocol Stop: 11/16/17 18:46 Last Admin: 11/09/17 05:46 Dose: 167 mls/hr Acyclovir 750 mg/ Sodium (Chloride) 100 mls @ 100 mls/hr IV Q8 [facility] PRN Reason: Protocol Stop: 11/16/17 19:01 Last Admin: 11/09/17 05:46 Dose: 100 mls/hr Potassium Chloride (Potassium Chloride 20 Meq/100 Ml) 20 meq in 100 mls @ 50 mls/hr IVPB Q2H [facility] Stop: 11/09/17 11:59 Last Admin: 11/09/17 11:01 Dose: 50 mls/hr Metoprolol Tartrate (Lopressor) 25 mg PO BRKDIN [facility] Last Admin: 11/09/17 08:20 Dose: 25 mg Pantoprazole Sodium (Protonix Ec Tab) 40 mg PO 0600 [facility] Physical Exam - Head Exam Head Exam: NORMOCEPHALIC - Eye Exam Eye Exam: Normal appearance. absent: Scleral icterus - ENT Exam ENT Exam: Mucous Membranes Moist - Respiratory Exam Respiratory Exam: NORMAL BREATHING PATTERN. absent: Respiratory Distress - Cardiovascular Exam Cardiovascular Exam: +S1, +S2 - GI/Abdominal Exam GI & Abdominal Exam: Normal Bowel Sounds, Soft. absent: Guarding, Organomegaly , Rebound, Tenderness - Extremities Exam Extremities exam: Positive for: pedal pulses present. Negative for: calf tenderness, pedal edema - Neurological Exam Neurological exam: Alert, Oriented x3 - Skin Skin Exam: Dry, Warm Results - Vital Signs Recent Vital Signs: Last Vital Signs Temp 97.8 F 11/09/17 06:48 Pulse 103 H 11/09/17 08:20 Resp 21 11/09/17 06:00 BP 131/76 11/09/17 08:20 Pulse Ox 95 11/09/17 06:00 - Labs Result Diagrams: 11/09/17 06:00 11/09/17 06:00 Labs: Laboratory Results - last 24 hr 11/08/17 11/08/17 11/08/17 06:00 06:00 06:00 WBC RBC Hgb Hct MCV MCH MCHC RDW Plt Count MPV Gran % Lymph % (Auto) [place] % (Auto) Eos % (Auto) Baso % (Auto) Gran # Lymph # (Auto) [place] # (Auto) Eos # (Auto) Baso # (Auto) Sodium Potassium Chloride Carbon Dioxide Anion Gap BUN Creatinine Est GFR ( Amer) Est GFR (Non-Af Amer) Random Glucose Hemoglobin A1c 5.7 Calcium Iron TIBC % Saturation Total Bilirubin AST ALT Alkaline Phosphatase Lactate Dehydrogenase Total Creatine Kinase CK-MB (CK-2) CK-MB (CK-2) % Troponin I Total Protein Albumin Globulin Albumin/Globulin Ratio Triglycerides Cholesterol LDL Cholesterol Direct HDL Cholesterol Free T4 TSH 3rd Generation RPR Nonreactive Hepatitis A IgM Ab Hep Bs Antigen Hep B Core IgM Ab Hepatitis C Antibody HIV-1 Antibody TEST NOT PERFORMED HIV-2 Antibody TEST NOT PERFORMED HIV 1&2 Ag/Ab, 4th Gen Nonreactive Influenza Typ A,B (EIA) 11/08/17 11/08/17 11/09/17 06:00 18:00 06:00 WBC 6.6 RBC 3.46 L Hgb 11.1 L Hct 31.2 L MCV 90.2 MCH 32.1 MCHC 35.6 RDW 14.5 Plt Count 118 L MPV 10.8 Gran % 88.6 H Lymph % (Auto) 8.5 L [place] % (Auto) 2.9 Eos % (Auto) 0.0 L Baso % (Auto) 0.0 Gran # 5.81 Lymph # (Auto) 0.6 L [place] # (Auto) 0.2 Eos # (Auto) 0.0 Baso # (Auto) 0.00 Sodium Potassium Chloride Carbon Dioxide Anion Gap BUN Creatinine Est GFR ( Amer) Est GFR (Non-Af Amer) Random Glucose Hemoglobin A1c Calcium Iron TIBC % Saturation Total Bilirubin AST ALT Alkaline Phosphatase Lactate Dehydrogenase Total Creatine Kinase CK-MB (CK-2) CK-MB (CK-2) % Troponin I Total Protein Albumin Globulin Albumin/Globulin Ratio Triglycerides Cholesterol LDL Cholesterol Direct HDL Cholesterol Free T4 TSH 3rd Generation RPR Hepatitis A IgM Ab Negative Hep Bs Antigen Negative Hep B Core IgM Ab Negative Hepatitis C Antibody Negative HIV-1 Antibody HIV-2 Antibody HIV 1&2 Ag/Ab, 4th Gen Influenza Typ A,B (EIA) Negative for flu a/b 11/09/17 11/09/17 11/09/17 06:00 06:00 06:00 WBC RBC Hgb Hct MCV MCH MCHC RDW Plt Count MPV Gran % Lymph % (Auto) [place] % (Auto) Eos % (Auto) Baso % (Auto) Gran # Lymph # (Auto) [place] # (Auto) Eos # (Auto) Baso # (Auto) Sodium 134 Potassium 2.9 L* Chloride 100 Carbon Dioxide 23 Anion Gap 14 BUN 9 Creatinine 0.7 Est GFR ( Amer) > 60 Est GFR (Non-Af Amer) > 60 Random Glucose 120 H Hemoglobin A1c Calcium 7.6 L Iron 20 L TIBC 168 L % Saturation 12 L Total Bilirubin 0.3 AST 235 H D ALT 138 H Alkaline Phosphatase 83 Lactate Dehydrogenase 1182 H Total Creatine Kinase 272 H CK-MB (CK-2) 0.7 CK-MB (CK-2) % Cancelled Troponin I 0.02 Total Protein 6.1 Albumin 2.9 L Globulin 3.3 Albumin/Globulin Ratio 0.9 L Triglycerides 204 H Cholesterol 133 LDL Cholesterol Direct 65 HDL Cholesterol 22 L Free T4 1.30 TSH 3rd Generation 1.19 RPR Hepatitis A IgM Ab Hep Bs Antigen Hep B Core IgM Ab Hepatitis C Antibody HIV-1 Antibody HIV-2 Antibody HIV 1&2 Ag/Ab, 4th Gen Influenza Typ A,B (EIA) Assessment & Plan - Assessment and Plan (Free Text) Assessment: Assessment: Fever Elevated liver enzyme, differentials to consider is medication induced, alcoholic hepatitis, or Rhabdomylosis, pt elevated total creatinine kinase, elevated LDH Poor appetite History of left ear deafness Hypokalemia Plan: Patient may benefit from CT scan of abdomen and pelvis but we will currently hold off as patient is hypokalemic Monitor electrolytes and replace as necessary On IV antibiotics as per ID Trend LFTs ID follow-up on IVF Thank you for this consult and for allowing us to participate in your patient's care, further recommendations based upon clinical course. Thank you for this consult seen and discussed with Dr. Andrews
--- NOTE | 2017-11-09 17:08 | PN ---
DATE: 11/09/2017 SUBJECTIVE: The patient is in bed, seen in room 271, bed 1. her is at the bedside. He states that she is back to her baseline and she has difficulty answering questions because of the hearing loss. Her temperature is on a downward trend. OBJECTIVE: VITAL SIGNS: On exam, temperature is 97, T-max was 100.5, respiratory rate of 21, heart rate of 103. HEENT: Examination is unremarkable. NECK: Supple. LUNGS: Have decreased breath sounds. HEART: Normal S1, S2. ABDOMEN: Soft, nontender. DATA: Laboratory examination reveals a white count of 6.6, hemoglobin of 11, platelets of 118. Coagulation is noted. Chemistries reveal a BUN of 9, creatinine of 0.9, AST is 235, ALT is 138, LDH is 1182. Procalcitonin is 1.84 and sodium is up to 134, potassium is 3.9 and urinalysis is noted and serology reveals RPR is negative. TFT is pending. Hepatitis profile is negative. HIV is negative and influenza is negative. Microbiology reveals the urine culture has multiple species, probable contamination with blood cultures with no growth and the patient is on vancomycin and acyclovir and meropenem. For imaging, the patient had MRI of the brain which reveals multiple foci of white matter signal abnormality compatible with chronic microvascular ischemic disease and abdominal ultrasound, which shows a small right pleural effusion and increased hepatic echogenicity compatible with fatty infiltration. Chest x-ray was reported to have no active disease. Dr. Jauregui's consultation is reviewed and Dr. Carter's progress note from today is reviewed. 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 With change of mental status with worsening of her hearing loss, currently on vancomycin, meropenem and acyclovir.. Awaiting for neurological further evaluation for spinal tap. Repeat MRI with contrast. We will check on the final culture results. The patient is awake and alert. She knows who she is and where she is; however, she is slow to response. We will continue the acyclovir, vancomycin and meropenem. Awaiting for ENT consultation regarding the hearing loss and history of mastoiditis. Anjel Vaughn MD
[2017-11-09 18:08] LABS: FOLATE 10.1 ng/mL
--- NOTE | 2017-11-09 18:30 | PN ---
DATE: 11/09/2017 NEUROLOGY FOLLOWUP CHIEF COMPLAINT: Altered mental status. SUBJECTIVE: The patient was seen and examined at bedside. Currently, the patient was apparently up and walking around with the physical therapist, does have waxing and waning confusional episodes. As I was interviewing the patient, she was seen a washing machine on the wall with door knobs as well. According to the that it is something that is new. Her MRI of the brain without contrast showed no acute intracranial abnormality, some mild chronic ischemic changes. The patient refused lumbar puncture to be done at bedside. After multiple attempts of explaining, she agreed for a fluoroscopy, which could be done first thing in the morning. Lab work has already been ordered. She has elevated neutrophils of 90 with bandemia of 3, procalcitonin of 1.84, has elevated LFTs and LDH. She also has some underlying iron deficiency anemia. Her potassium was 2.9 today which was replaced. 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 REVIEW OF SYSTEMS: A 14-point review of systems is negative except as per the HPI. ALLERGIES: ALLERGIC TO SULFA MEDS. SOCIAL HISTORY: Occasional EtOH use. No illicit drug use. Former smoker. MEDICATIONS: Reviewed by nurses' reconciliation sheet. FAMILY HISTORY: Noncontributory. PHYSICAL EXAMINATION: VITAL SIGNS: Temperature 97.1, pulse rate of 102, blood pressure 139/90, respiratory rate of 19. GENERAL: The patient is sitting up in bed. Mildly confused. Moving all extremities. HEENT: Head is atraumatic and normocephalic. PERRLA. Extraocular muscles intact. NECK: Supple. No JVD. No adenopathy noted. LUNGS: Clear to auscultation. No adventitious sounds. HEART: S1 and S2. Normal rate and rhythm. No murmur, rubs, or gallops. ABDOMEN: Soft, nontender, nondistended. Bowel sounds present. EXTREMITIES: No clubbing. No cyanosis. Peripheral pulses 2+ felt bilaterally. NEUROLOGIC: The patient is alert, oriented to person and place, not much to month or year. Recall after 5 minutes is 0/3. Poor attention span. Slow thought process. She is seeing washing machine on the wall, which is consistent with visual hallucinations. Affect is poor. Judgment is poor. Cranial nerves II through XII are intact. Motor: Slightly decreased tone throughout. Moves all extremities equally. No pronator drift seen. Sensory: Withdraws to localized noxious stimulus. Light touch, pinprick, and proprioception are intact. DTRs are 2+ throughout. Coordination: Footij-iv-yfbi intact. No dysmetria noted. Gait is deferred for now. LABORATORY DATA: Sodium 134, potassium 2.9, chloride 100, carbon dioxide 23, BUN of 9, creatinine 0.7, random glucose of 120. Elevated AST of 235, ALT of 138, lactate dehydrogenase of 1182. She has iron deficiency anemia with procalcitonin of 1.84 and B12 level more than 1000. 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 She has elevated procalcitonin level in addition to an elevated liver function tests. Overall, her altered mental status is definitely from acute encephalopathy, possible viral encephalitis in nature given her medical history. At this time, we will recommend, 1. Labs: NMDA serum, to rule out NMD encephalitis, since the patient refused bedside lumbar puncture, we will do it under fluoroscopy stat tomorrow morning with cell culture, CSF protein, CSF HSV, CSF CMV, CSF 14-3-3 protein, CSF BOB virus. 2. We will do an MRI of brain with and without contrast to assess for any enhancement of the meningeal lining. 3. We will consider thiamine 100 mg p.o. every 12 hours for neural activation. 4. Continue to monitor subjective fevers and follow up with current antibiotics of meropenem and vancomycin as per ID. The patient is already also on acyclovir. 5. Monitor electrolytes and correct accordingly and advise delirium precautions. Cristiano Jauregui MD
[2017-11-10] MEDS: Meropenem IV 1 gm in NS 50 ML IVPB SCH ×3 (05:25→22:18)
[2017-11-10] MEDS: Pantoprazole 40 mg EC Tab PO SCH (06:36)
--- NOTE | 2017-11-10 08:33 | CP.PCM.PN ---
Subjective - Date & Time of Evaluation Date of Evaluation: 11/10/17 Time of Evaluation: 07:30 - Subjective Subjective: Patient is seen this morning in room 271 bed 1. Her heart rate went up to 240 earlier this morning, according to the monitor. Patient denies chest pain or shortness of breath. Objective - Vital Signs/Intake and Output Vital Signs (last 24 hours): Temp Pulse Resp BP Pulse Ox 98.9 F 95 H 20 143/82 97 11/10/17 07:04 11/10/17 07:04 11/10/17 07:04 11/10/17 07:04 11/10/17 07:04 Intake and Output: 11/10/17 11/10/17 06:59 18:59 Intake Total 1055 Balance 1055 - Medications Medications: Current Medications Acetaminophen (Tylenol 325mg Tab) 650 mg PO Q4H PRN PRN Reason: Fever >100.4 F Last Admin: 11/09/17 17:38 Dose: 650 mg Al Hydrox/Mg Hydrox/Simethicone (Maalox Plus 30 Ml) 30 ml PO DAILY PRN PRN Reason: Indigestion / Heartburn Fluticasone Propionate (Flonase) 2 actuation NS DAILY [facility] Last Admin: 11/09/17 09:01 Dose: 2 spr Sodium Chloride (Sodium Chloride 0.9%) 1,000 mls @ 80 mls/hr IV .[id number] [facility] Last Admin: 11/09/17 07:56 Dose: Not Given Meropenem (Merrem Iv 1 Gm Premix) 50 mls @ 100 mls/hr IVPB Q8 [facility] PRN Reason: Protocol Stop: 11/16/17 18:37 Last Admin: 11/10/17 05:25 Dose: 100 mls/hr Vancomycin HCl (Vancomycin 1gm) 1 gm in 250 mls @ 167 mls/hr IVPB Q12H [facility] PRN Reason: Protocol Stop: 11/16/17 18:46 Last Admin: 11/09/17 17:46 Dose: 167 mls/hr Acyclovir 750 mg/ Sodium (Chloride) 100 mls @ 100 mls/hr IV Q8 [facility] PRN Reason: Protocol Stop: 11/16/17 19:01 Last Admin: 11/10/17 06:32 Dose: 100 mls/hr Metoprolol Tartrate (Lopressor) 25 mg PO BRKDIN [facility] Last Admin: 11/09/17 17:37 Dose: 25 mg Pantoprazole Sodium (Protonix Ec Tab) 40 mg PO 0600 [facility] Last Admin: 11/10/17 06:36 Dose: 40 mg Thiamine HCl (Vitamin B1 Tab) 100 mg PO Q8 [facility] Last Admin: 11/10/17 06:36 Dose: 100 mg - Labs Labs: 11/09/17 06:00 11/09/17 06:00 PT 12.3 SECONDS (9.4-12.5) 11/07/17 10:39 INR 1.07 (0.93-1.08) 11/07/17 10:39 APTT 33.1 Seconds (25.1-36.5) 11/07/17 10:39 - Constitutional Appears: No Acute Distress - Head Exam Head Exam: ATRAUMATIC, NORMOCEPHALIC - Respiratory Exam Respiratory Exam: Clear to Ausculation Bilateral, NORMAL BREATHING PATTERN - Cardiovascular Exam Cardiovascular Exam: Tachycardia, +S1, +S2 - GI/Abdominal Exam GI & Abdominal Exam: Soft, Normal Bowel Sounds. absent: Tenderness - Neurological Exam Neurological Exam: Alert, Awake, Oriented x3 Assessment and Plan - Assessment and Plan (Free Text) Assessment: Fever r/o sepsis Sinus tachycardia Otitis media with left hearing loss AMS Arthritis HTN Plan: Patient's heart rate went up to 240 on the monitor. Currently, patient is in sinus tachycardia with heart rate of 114. Will consult cardiology with Dr. Mariano. Fevers appear to be subsiding. continue antibiotics as per infectious disease. Patient's hemoglobin has dropped to 11.1 B12 and folate levels are within normal limits. Iron levels are low. Will check stool for occult blood. Patient seen by gastroenterology yesterday. Once stable, she will need CT abd/pelvis. Awaiting today's electrolytes. Patient to have lumbar puncture today under fluoroscopy.
[2017-11-10] MEDS: Potassium Ch 20mEq in D5-1/2NS 1,000 ML IV SCH ×2 (09:12→22:27)
[2017-11-10] MEDS ORDERED: Potassium Chloride 20 mEq ER Tab PO ONE (09:24)
[2017-11-10] MEDS: Fluticasone Nasal 50 mcg/Spray NS SCH (09:52)
--- NOTE | 2017-11-10 10:55 | PN ---
DATE: 11/10/2017 SUBJECTIVE: The patient is in bed in no acute distress, nontoxic. OBJECTIVE: VITAL SIGNS: On exam, temperature is 98, blood pressure is 140/80, respiratory rate of 20, heart rate of 95. HEENT: Examination is unremarkable. NECK: Supple. LUNGS: Have decreased breath sounds. HEART: Normal S1, S2. ABDOMEN: Soft, nontender. DATA: Laboratory examination reveals the patient's white count of 6.6 and hemoglobin of 11, platelets of 118. BUN of 9, creatinine of 0.7 and procalcitonin is 1.84. Urinalysis is noted and RPR is negative. HIV is negative. Influenza is negative. Microbiology is negative and T-max yesterday was 100.7. Dr. Cristiano Jauregui's note is reviewed. MEDICATIONS: Review of medications reveal the patient to be on vancomycin, meropenem and acyclovir. 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 The patient scheduled for a spinal tap today and an MRI with contrast. Case discussed with her this morning who was at the bedside and he states he feels the patient is improving and awaiting for spinal tap results and MRI results. Anjel Vaughn MD
[2017-11-10] MEDS ORDERED: Lidocaine 1% Inj (20ml) ONE (11:24)
--- NOTE | 2017-11-10 11:59 | CARD ---
APPROVED REPORT EKG Measurement Heart [id number] SC 116P9 [id number] <Conclusion> Sinus tachycardia. PACs. Otherwise normal ECG
[2017-11-10 13:28] LABS: FLUID TYPE SPINAL FLUID
[2017-11-10] MEDS ORDERED: Albuterol-Ipratrop 3 mg / 0.5 (3 ml) UD IH PRN (13:47)
[2017-11-10] MEDS ORDERED: Levalbuterol 0.63 MG/3 ML Inhal Soln UD IH PRN (13:50)
--- NOTE | 2017-11-10 13:55 | RAD ---
PROCEDURE: Fluoroscopically guided lumbar puncture HISTORY: ams COMPARISON: TECHNIQUE: The procedure was performed in the Radiology department. Informed consent was obtained. 1 percent lidocaine was used as local anesthetic. Lumbar puncture was performed at the L4 level using a 20 gauge needle. Lumbar puncture successful on the 1st attempt. The patient tolerated the procedure well and there were no complications FINDINGS: Despite the fact it lumbar puncture was successful on the 1st approach the spinal fluid was bloody. This is probably due to crossing of a dorsal venous plexus. The bladder was most tessa headed in the 1st tube and showed clearing. IMPRESSION: Successful lumbar puncture
[2017-11-10 14:11] LABS: CSF APPEARANCE BLOODY (CLEAR); CSF VOLUME 4 mL (0-1)
[2017-11-10 14:17] LABS: CSF MONO/MACROPHAGE 5 % (0-0)
--- NOTE | 2017-11-10 14:32 | CT ---
PROCEDURE: CT Chest without contrast HISTORY: abnormal BS/Fever COMPARISON: None. TECHNIQUE: Contiguous axial images were obtained through the chest without intravenous contrast enhancement. Sagittal and coronal reconstructions were performed. Radiation dose (DLP): 512 mGy-cm. This CT exam was performed using one or more of the following dose reduction techniques: Automated exposure control, adjustment of the mA and/or kV according to patient size, and/or use of iterative reconstruction technique. FINDINGS: LUNGS: There is a dense alveolar infiltrate in the right lower lobe and posterior right upper lobe. More patchy infiltrates are seen in the anterior right upper lobe and left upper lobe. Findings consistent with multi focal pneumonia MEDIASTINUM: Unremarkable thoracic aorta. No aneurysm. Normal sized heart. Main pulmonary artery unremarkable. No vascular congestion. No lymphadenopathy. PLEURA: No pleural fluid. No pneumothorax. BONES: No fracture. No destructive lesion. UPPER ABDOMEN: Grossly unremarkable. OTHER FINDINGS: None. IMPRESSION: There is a dense alveolar infiltrate in the right lower lobe and posterior right upper lobe. More patchy infiltrates are seen in the anterior right upper lobe and left upper lobe. Findings consistent with multi focal pneumonia
[2017-11-10 16:15] LABS: URINE BILIRUBIN NEGATIVE (NEGATIVE); URINE BLOOD MODERATE (NEGATIVE); URINE GLUCOSE (UA) NEGATIVE (NEGATIVE); URINE LEUKOCYTE ESTERASE NEGATIVE Leu/uL (NEGATIVE); URINE PROTEIN 100 mg/dL (<30 mg/dL); URINE UROBILINOGEN 0.2 E.U./dL (<1 E.U./dL)
[2017-11-10 16:21] LABS: URINE APPEARANCE CLEAR (CLEAR); URINE COLOR YELLOW (YELLOW)
[2017-11-10 16:30] LABS: URINE BACTERIA FEW (NEG); URINE RBC 0 - 2 /hpf (0-2); URINE WBC 0 - 2 /hpf (0-6)
[2017-11-10] MEDS ORDERED: Gadodiamide 287 MG/ML VIAL (15ML) IV ONE (16:34)
[2017-11-10] MEDS: Vancomycin 1gm in NS 250ml 1 GM/250 ML BAG IVPB SCH (18:08)
--- NOTE | 2017-11-10 19:01 | MRI ---
PROCEDURE: MRI BRAIN WITH AND WITHOUT CONTRAST HISTORY: ams COMPARISON: Unenhanced brain MRI 11/08/2017. TECHNIQUE: Multiplanar, multisequence MR images of the brain were obtained with and without intravenous contrast enhancement. FINDINGS: HEMORRHAGE: None DWI: No evidence of an acute or early subacute infarction. BRAIN PARENCHYMA: Stable chronic microangiopathy is appreciated within the cerebrum without mass effect, intracranial hemorrhage or cortical edema identified in the interval. No additional signal abnormality is appreciated with posterior fossa contents remain normal appearing overall. ENHANCEMENT: No suspicious intra or extra-axial enhancement appreciated following intravenous gadolinium administration. VENTRICLES: Unremarkable. No hydrocephalus. CRANIUM: Unremarkable. ORBITS: Grossly unremarkable. PARANASAL SINUSES/MASTOIDS: Trace left maxillary mucosal inflammatory changes noted. VASCULAR SYSTEM: Skull base flow voids intact. OTHER FINDINGS: None . IMPRESSION: Minimal age related neuro degenerative changes are appreciated comprise a chronic microangiopathy once again. No abnormal intracranial enhancement appreciated throughout.
--- NOTE | 2017-11-10 21:21 | CON ---
DATE: 11/10/2017 REASON FOR CONSULTATION AND FOLLOWUP: SVT while in the equipment monitor phototypesetting floor, cardiac evaluation. BRIEF CLINICAL HISTORY: This is a 62-year-old female, obese, body mass index 35.5 kg/m2, history of hypertension, and history of mastoiditis, multiple ear surgery and hard of hearing because of the mastoid ear infection, admitted with clogging of the ears and feel dizzy. While the patient was in a equipment monitor phototypesetting, EKG shows normal sinus with APCs and then the patient has runs of SVT with heart rate of 300, so Cardiology consult was called. The patient's is at the bedside, though patient is hard of hearing, but able to tell the story. The patient says that prior to coming here, was feeling very weak, lethargic, almost comatose as per , possibly secondary to sepsis from the ear infection. Denies any chest pain, denies any shortness of breath, denies any palpitation, denies any documented cardiac history. PAST MEDICAL HISTORY: Significant for recurrent ear infection going over a period of 6 to 7 years, multiple mastoid surgery in both ears, history of chronic sinusitis and otitis media, also the patient has a tube in both ears. PAST SURGICAL HISTORY: Significant for multiple ear surgery both with mastoid and tube, that was placed in both ears, history of meniscus tear and knee surgery. CURRENT MEDICATIONS: The patient is on acyclovir, sodium chloride, metoprolol tartrate 25 p.o. b.i.d., meropenem, , vancomycin, thiamine. ALLERGIES: SULFONAMIDES. REVIEW OF SYSTEMS: As per HPI. MEDICATION AT HOME: The patient is taking triamterene and hydrochlorothiazide, Maxzide 50 mg daily. PHYSICAL EXAMINATION: VITAL SIGNS: Temperature afebrile, heart rate 79, blood pressure 115/53. HEENT: PERRLA. Extraocular muscles intact. NECK: Supple. No carotid bruit or thyromegaly. CHEST: Clear to auscultation. HEART: S1 and S2 regular. ABDOMEN: Soft. EXTREMITIES: Clubbing and cyanosis negative. LABORATORY DATA AND IMAGING: EKG showed normal sinus with APCs. Blood workup as follows: WBC 6.6, hemoglobin , hematocrit 31.2, platelet count 118. Chemistry shows sodium 134, potassium 2.9, chloride 100, carbon dioxide 14, anion gap of 9, BUN 0.9, TSH is 1.19. Troponin is 0.02. 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 RECOMMENDATION: We will give beta-linda 50 b.i.d., supplement aggressive electrolyte, echo to rule out any structural heart disease, monitor telemetry, further recommendation depending upon hospital course. We will follow with you. Thank you, Dr. Rodriguez, for providing us the opportunity in taking care of the patient, Marlene Darcie. Lokesh Mariano MD
[2017-11-11] MEDS: Sodium Chloride 0.9% 1,000 ML IV SCH (04:32)
[2017-11-11] MEDS: Meropenem IV 1 gm in NS 50 ML IVPB SCH ×3 (05:21→21:16)
[2017-11-11] MEDS: Pantoprazole 40 mg EC Tab PO SCH (05:27)
[2017-11-11 06:49] LABS: EOS % 0.1 % (1.5-5.0); GRAN # 6.3 (1.4-6.5); GRAN % 89.1 % (50.0-68.0); HEMOGLOBIN 10.7 g/dL (12.0-16.0); LYMPH # 0.5 (1.2-3.4); LYMPH % 7.4 % (22.0-35.0); MEAN CELL VOLUME 90.4 fl (80.0-105.0); MEAN CORPUSCULAR HEMOGLOBIN 31.9 pg (25.0-35.0); MEAN CORPUSCULAR HGB CONC 35.3 g/dl (31.0-37.0); MEAN PLATELET VOLUME 10.7 fl (7.0-11.0); MONO # 0.2 (0.1-0.6); MONO % 3.4 % (1.0-6.0); RBC 3.35 10^6/uL (3.5-6.1); RED CELL DISTRIBUTION WIDTH 15.2 % (11.5-14.5); WHITE BLOOD COUNT 7.1 10^3/ul (4.5-11.0)
[2017-11-11] MEDS: Vancomycin 1gm in NS 250ml 1 GM/250 ML BAG IVPB SCH ×2 (07:02→17:45)
[2017-11-11 07:32] LABS: ALB/GLOB RATIO 0.9 (1.1-1.8); ALBUMIN 2.7 g/dL (3.0-4.8); ALT/SGPT 205 U/L (7-56); AST/SGOT 310 U/L (14-36); BLOOD UREA NITROGEN 9 mg/dL (7-21); CALCIUM 7.6 mg/dL (8.4-10.5); GFR AFRICAN-AMERICAN > 60; GFR NON-AFRICAN AMERICAN > 60
[2017-11-11] MEDS ORDERED: Potassium Phosphate 15 MMOLE in Sodium Chloride 0.9% 250 ML IVPB ONE (07:58)
--- NOTE | 2017-11-11 08:08 | CP.PCM.PN ---
Subjective - Date & Time of Evaluation Date of Evaluation: 11/11/17 Time of Evaluation: 07:45 - Subjective Subjective: Patient is seen this morning. She is sitting up in the bed. She is feeling better. According to the , patient was hallucinating last night. She complains of cough. Objective - Vital Signs/Intake and Output Vital Signs (last 24 hours): Temp Pulse Resp BP Pulse Ox 98.5 F 104 H 20 140/70 99 11/11/17 06:43 11/11/17 06:43 11/11/17 06:43 11/11/17 06:43 11/11/17 06:43 Intake and Output: 11/11/17 11/11/17 06:59 18:59 Intake Total 2590 Balance 2590 - Medications Medications: Current Medications Acetaminophen (Tylenol 325mg Tab) 650 mg PO Q4H PRN PRN Reason: Fever >100.4 F Last Admin: 11/11/17 00:00 Dose: 650 mg Al Hydrox/Mg Hydrox/Simethicone (Maalox Plus 30 Ml) 30 ml PO DAILY PRN PRN Reason: Indigestion / Heartburn Fluticasone Propionate (Flonase) 2 actuation NS DAILY [facility] Last Admin: 11/10/17 09:52 Dose: 2 spr Meropenem (Merrem Iv 1 Gm Premix) 50 mls @ 100 mls/hr IVPB Q8 [facility] PRN Reason: Protocol Stop: 11/16/17 18:37 Last Admin: 11/11/17 05:21 Dose: 100 mls/hr Vancomycin HCl (Vancomycin 1gm) 1 gm in 250 mls @ 167 mls/hr IVPB Q12H [facility] PRN Reason: Protocol Stop: 11/16/17 18:46 Last Admin: 11/11/17 07:02 Dose: 167 mls/hr Potassium Chloride/Dextrose/Sod Cl (Potassium Chl 20 Meq In D5-1/2ns) 1,000 mls @ 80 mls/hr IV .[id number] [facility] Last Admin: 11/10/17 22:27 Dose: 80 mls/hr Acyclovir 750 mg/ Sodium (Chloride) 100 mls @ 100 mls/hr IV Q8 [facility] PRN Reason: Protocol Last Admin: 11/11/17 05:26 Dose: 100 mls/hr Potassium Phosphate 15 mmole/ (Sodium Chloride) 255 mls @ 42.5 mls/hr IVPB ONCE ONE Stop: 11/11/17 13:57 Levalbuterol HCl (Xopenex) 0.63 mg IH [id number] PRN PRN Reason: Wheezing Metoprolol Tartrate (Lopressor) 50 mg PO BRKDIN [facility] Last Admin: 11/10/17 17:18 Dose: 50 mg Pantoprazole Sodium (Protonix Ec Tab) 40 mg PO 0600 [facility] Last Admin: 11/11/17 05:27 Dose: 40 mg Potassium Phos/Sodium Phos (Neutra-Phos) 1 pkt PO DAILY [facility] Prednisone (Prednisone Tab) 30 mg PO DAILY [facility] Promethazine HCl/Codeine (Phenergan/Codeine Oral Syrup) 5 ml PO Q4H PRN PRN Reason: Cough and congestion Thiamine HCl (Vitamin B1 Tab) 100 mg PO Q8 [facility] Last Admin: 11/11/17 05:31 Dose: 100 mg - Labs Labs: 11/11/17 06:20 11/11/17 06:20 PT 12.3 SECONDS (9.4-12.5) 11/07/17 10:39 INR 1.07 (0.93-1.08) 11/07/17 10:39 APTT 33.1 Seconds (25.1-36.5) 11/07/17 10:39 - Constitutional Appears: No Acute Distress - Head Exam Head Exam: ATRAUMATIC, NORMOCEPHALIC - Respiratory Exam Respiratory Exam: Clear to Ausculation Bilateral, NORMAL BREATHING PATTERN - Cardiovascular Exam Cardiovascular Exam: +S1, +S2 - GI/Abdominal Exam GI & Abdominal Exam: Soft, Normal Bowel Sounds. absent: Tenderness - Neurological Exam Neurological Exam: Alert, Awake, Oriented x3 Assessment and Plan - Assessment and Plan (Free Text) Assessment: Sepsis Multifocal pneumonia AMS Hypokalemia Hypophosphatemia HTN Elevated liver enzymes Plan: Patient complains of cough this morning. CT chest done yesterday shows multifocal pneumonia. Patient is on antibiotics as per infectious disease. Will order phenergan with codeine as needed for cough. Lumbar puncture was done yesterday and appears to be bloody. CT Head and MRIs of the brain do not show subarachnoid hemorrhage. Patient's heart rate went up to 240 yesterday morning. She has been seen by cardiology, Dr Mariano. Echocardiogram done yesterday. Report pending. continue beta-linda. Will continue IV fluids as patient has poor appetite. Liver enzymes continue to rise. Cardiology, Neurology, Infectious disease, and GI are on consultation.
--- NOTE | 2017-11-11 09:05 | CARD ---
APPROVED REPORT EKG Measurement Heart [id number] [place] [id number] <Conclusion> Sinus tachycardia with premature atrial complexes Otherwise normal ECG
[2017-11-11] MEDS: Promethazine/Cod 6.25mg-10mg/5ml Syr UD PO PRN ×4 (09:21→22:36)
[2017-11-11] MEDS: Potassium & Sodium Phosphate PO SCH (09:21)
[2017-11-11] MEDS: Fluticasone Nasal 50 mcg/Spray NS SCH (09:21)
--- NOTE | 2017-11-11 09:49 | CP.PCM.PN ---
Subjective - Date & Time of Evaluation Date of Evaluation: 11/11/17 Time of Evaluation: 06:35 - Subjective Subjective: Awake, lying in bed, shortness of breath, wheezing, denies chest pain Reason for consultation and follow up: Cardiac evaluation, SVT,hypertension Seen and examined by me and Dr. Mariano Objective - Vital Signs/Intake and Output Vital Signs (last 24 hours): Temp Pulse Resp BP Pulse Ox 98.5 F 120 H 20 144/89 99 11/11/17 06:43 11/11/17 09:38 11/11/17 06:43 11/11/17 09:38 11/11/17 06:43 Intake and Output: 11/11/17 11/11/17 06:59 18:59 Intake Total 2590 Balance 2590 - Medications Medications: Current Medications Acetaminophen (Tylenol 325mg Tab) 650 mg PO Q4H PRN PRN Reason: Fever >100.4 F Last Admin: 11/11/17 00:00 Dose: 650 mg Al Hydrox/Mg Hydrox/Simethicone (Maalox Plus 30 Ml) 30 ml PO DAILY PRN PRN Reason: Indigestion / Heartburn Fluticasone Propionate (Flonase) 2 actuation NS DAILY [facility] Last Admin: 11/11/17 09:21 Dose: 2 spr Meropenem (Merrem Iv 1 Gm Premix) 50 mls @ 100 mls/hr IVPB Q8 [facility] PRN Reason: Protocol Stop: 11/16/17 18:37 Last Admin: 11/11/17 05:21 Dose: 100 mls/hr Vancomycin HCl (Vancomycin 1gm) 1 gm in 250 mls @ 167 mls/hr IVPB Q12H [facility] PRN Reason: Protocol Stop: 11/16/17 18:46 Last Admin: 11/11/17 07:02 Dose: 167 mls/hr Potassium Chloride/Dextrose/Sod Cl (Potassium Chl 20 Meq In D5-1/2ns) 1,000 mls @ 80 mls/hr IV .[id number] [facility] Last Admin: 11/10/17 22:27 Dose: 80 mls/hr Acyclovir 750 mg/ Sodium (Chloride) 100 mls @ 100 mls/hr IV Q8 [facility] PRN Reason: Protocol Last Admin: 11/11/17 05:26 Dose: 100 mls/hr Potassium Phosphate 15 mmole/ (Sodium Chloride) 255 mls @ 42.5 mls/hr IVPB ONCE ONE Stop: 11/11/17 13:57 Last Admin: 11/11/17 09:28 Dose: 42.5 mls/hr Levalbuterol HCl (Xopenex) 0.63 mg IH [id number] PRN PRN Reason: Wheezing Metoprolol Tartrate (Lopressor) 50 mg PO BRKDIN [facility] Last Admin: 11/11/17 09:38 Dose: 50 mg Pantoprazole Sodium (Protonix Ec Tab) 40 mg PO 0600 [facility] Last Admin: 11/11/17 05:27 Dose: 40 mg Potassium Phos/Sodium Phos (Neutra-Phos) 1 pkt PO DAILY [facility] Last Admin: 11/11/17 09:21 Dose: 1 pkt Prednisone (Prednisone Tab) 30 mg PO DAILY [facility] Last Admin: 11/11/17 09:21 Dose: 30 mg Promethazine HCl/Codeine (Phenergan/Codeine Oral Syrup) 5 ml PO Q4H PRN PRN Reason: Cough and congestion Last Admin: 11/11/17 09:21 Dose: 5 ml Thiamine HCl (Vitamin B1 Tab) 100 mg PO Q8 [facility] Last Admin: 11/11/17 05:31 Dose: 100 mg - Labs Labs: 11/11/17 06:20 11/11/17 06:20 PT 12.3 SECONDS (9.4-12.5) 11/07/17 10:39 INR 1.07 (0.93-1.08) 11/07/17 10:39 APTT 33.1 Seconds (25.1-36.5) 11/07/17 10:39 - Constitutional Appears: No Acute Distress - Eye Exam Eye Exam: Normal appearance - ENT Exam ENT Exam: Mucous Membranes Moist Additional comments: hard of hearing - Respiratory Exam Respiratory Exam: Decreased Breath Sounds Additional comments: slight shortness of breath, wheezing, - Cardiovascular Exam Cardiovascular Exam: +S1, +S2 Additional comments: Telemetry NSR 80's - GI/Abdominal Exam GI & Abdominal Exam: Soft, Normal Bowel Sounds - Extremities Exam Extremities Exam: Normal Capillary Refill - Neurological Exam Neurological Exam: Alert, Awake, Oriented x3 - Psychiatric Exam Psychiatric exam: Normal Affect, Normal Mood - Skin Skin Exam: Intact, Normal Color, Warm Assessment and Plan - Assessment and Plan (Free Text) Assessment: A 62 year old female who was brought to the ER due to weakness,no appetite.While in telemetry, rhythm went into SVT at 300/min. Initial EKG normal sinus rythym with APC's. She has history of multiple ear surgery due to mastoditis, hypertension, obese. Plan: SVT probably secondary to low potassium (2.9) Potassium replenished Telemetry NSR at 80/min ECHO done will follow final reading K+ 3.3 cover with KCl 40 meq x 1 dose On Lopressor 50 mg BID Mild shortness of breaht this morning with claimed breathing tightness and wheezing on auscultation On dose of IV prednisone and started on low dose oral prednisone Respiratory to give nebulizer treatment as ordered Continue current medications Continue current treatment Will follow up Plan and treatment discussed with Dr. Mariano
[2017-11-11] MEDS: Potassium Ch 20mEq in D5-1/2NS 1,000 ML IV SCH ×2 (09:50→20:15)
[2017-11-11] MEDS ORDERED: Potassium Chloride 40 mEq/30 ml LIQ UD PO STA (10:01)
--- NOTE | 2017-11-11 10:46 | CP.PCM.PN ---
<Ronna Alatorre - Last Filed: 11/11/17 11:15> Subjective - Date & Time of Evaluation Date of Evaluation: 11/11/17 Time of Evaluation: 10:00 - Subjective Subjective: pgy-[address] Andrews's service Patient seen and examined at bedside. No acute distress. Nurse reports that patient had fever overnight. Chart reviewed. Patient denies abd pain, diarrhea, constipation, n/v. She denies any signs of bleeding. She is tolerating heart health diet. Objective - Vital Signs/Intake and Output Vital Signs (last 24 hours): Temp Pulse Resp BP Pulse Ox 98.5 F 120 H 20 144/89 99 11/11/17 06:43 11/11/17 09:38 11/11/17 06:43 11/11/17 09:38 11/11/17 06:43 Intake and Output: 11/11/17 11/11/17 06:59 18:59 Intake Total 2590 Balance 2590 - Medications Medications: Current Medications Acetaminophen (Tylenol 325mg Tab) 650 mg PO Q4H PRN PRN Reason: Fever >100.4 F Last Admin: 11/11/17 00:00 Dose: 650 mg Al Hydrox/Mg Hydrox/Simethicone (Maalox Plus 30 Ml) 30 ml PO DAILY PRN PRN Reason: Indigestion / Heartburn Fluticasone Propionate (Flonase) 2 actuation NS DAILY [facility] Last Admin: 11/11/17 09:21 Dose: 2 spr Meropenem (Merrem Iv 1 Gm Premix) 50 mls @ 100 mls/hr IVPB Q8 [facility] PRN Reason: Protocol Stop: 11/16/17 18:37 Last Admin: 11/11/17 05:21 Dose: 100 mls/hr Vancomycin HCl (Vancomycin 1gm) 1 gm in 250 mls @ 167 mls/hr IVPB Q12H [facility] PRN Reason: Protocol Stop: 11/16/17 18:46 Last Admin: 11/11/17 07:02 Dose: 167 mls/hr Potassium Chloride/Dextrose/Sod Cl (Potassium Chl 20 Meq In D5-1/2ns) 1,000 mls @ 80 mls/hr IV .[id number] [facility] Last Admin: 11/11/17 09:50 Dose: Not Given Acyclovir 750 mg/ Sodium (Chloride) 100 mls @ 100 mls/hr IV Q8 [facility] PRN Reason: Protocol Last Admin: 11/11/17 05:26 Dose: 100 mls/hr Potassium Phosphate 15 mmole/ (Sodium Chloride) 255 mls @ 42.5 mls/hr IVPB ONCE ONE Stop: 11/11/17 13:57 Last Admin: 11/11/17 09:28 Dose: 42.5 mls/hr Levalbuterol HCl (Xopenex) 0.63 mg IH [id number] PRN PRN Reason: Wheezing Metoprolol Tartrate (Lopressor) 50 mg PO BRKDIN [facility] Last Admin: 11/11/17 09:38 Dose: 50 mg Pantoprazole Sodium (Protonix Ec Tab) 40 mg PO 0600 [facility] Last Admin: 11/11/17 05:27 Dose: 40 mg Potassium Phos/Sodium Phos (Neutra-Phos) 1 pkt PO DAILY [facility] Last Admin: 11/11/17 09:21 Dose: 1 pkt Prednisone (Prednisone Tab) 30 mg PO DAILY [facility] Last Admin: 11/11/17 09:21 Dose: 30 mg Promethazine HCl/Codeine (Phenergan/Codeine Oral Syrup) 5 ml PO Q4H PRN PRN Reason: Cough and congestion Last Admin: 11/11/17 09:21 Dose: 5 ml Thiamine HCl (Vitamin B1 Tab) 100 mg PO Q8 [facility] Last Admin: 11/11/17 05:31 Dose: 100 mg - Labs Labs: 11/11/17 06:20 11/11/17 06:20 PT 12.3 SECONDS (9.4-12.5) 11/07/17 10:39 INR 1.07 (0.93-1.08) 11/07/17 10:39 APTT 33.1 Seconds (25.1-36.5) 11/07/17 10:39 Assessment and Plan - Assessment and Plan (Free Text) Assessment: 62-year-old female with a past medical history of left ear deafness presented for weakness, muscle ache, and dizzy. Fever Elevated liver enzyme, differentials to consider is medication induced, alcoholic hepatitis, or Rhabdomylosis, pt elevated total creatinine kinase, elevated LDH Poor appetite History of left ear deafness Hypokalemia Plan: hepatitis panel was negative abd US was negative Patient may benefit from CT scan of abdomen and pelvis but we will currently hold off Monitor electrolytes and replace as necessary On IV antibiotics as per ID LFT;s trending up, will continue to trend LFTs ID follow-up Patient will most likely need outpatient follow up for endoscopy seen and discussed with Dr. Andrews <Kelin Andrews V - Last Filed: 11/11/17 22:51> Objective - Vital Signs/Intake and Output Vital Signs (last 24 hours): Temp Pulse Resp BP Pulse Ox 98.1 F 96 H 20 130/77 99 11/11/17 17:50 11/11/17 18:00 11/11/17 17:50 11/11/17 17:50 11/11/17 06:43 Intake and Output: 11/11/17 11/12/17 18:59 06:59 Intake Total 660 Balance 660 - Medications Medications: Current Medications Acetaminophen (Tylenol 325mg Tab) 650 mg PO Q4H PRN PRN Reason: Fever >100.4 F Last Admin: 11/11/17 00:00 Dose: 650 mg Al Hydrox/Mg Hydrox/Simethicone (Maalox Plus 30 Ml) 30 ml PO DAILY PRN PRN Reason: Indigestion / Heartburn Fluticasone Propionate (Flonase) 2 actuation NS DAILY [facility] Last Admin: 11/11/17 09:21 Dose: 2 spr Potassium Chloride/Dextrose/Sod Cl (Potassium Chl 20 Meq In D5-1/2ns) 1,000 mls @ 80 mls/hr IV .[id number] [facility] Last Admin: 11/11/17 20:15 Dose: 80 mls/hr Levofloxacin/Dextrose (Levaquin 750mg) 750 mg in 150 mls @ 100 mls/hr IVPB DAILY [facility] PRN Reason: Protocol Stop: 11/20/17 13:01 Last Admin: 11/11/17 14:06 Dose: 100 mls/hr Levalbuterol HCl (Xopenex) 0.63 mg IH [id number] PRN PRN Reason: Wheezing Metoprolol Tartrate (Lopressor) 50 mg PO BRKDIN [facility] Last Admin: 11/11/17 17:33 Dose: 50 mg Pantoprazole Sodium (Protonix Ec Tab) 40 mg PO 0600 [facility] Last Admin: 11/11/17 05:27 Dose: 40 mg Potassium Phos/Sodium Phos (Neutra-Phos) 1 pkt PO DAILY [facility] Last Admin: 11/11/17 09:21 Dose: 1 pkt Prednisone (Prednisone Tab) 30 mg PO DAILY [facility] Last Admin: 11/11/17 09:21 Dose: 30 mg Promethazine HCl/Codeine (Phenergan/Codeine Oral Syrup) 5 ml PO Q4H PRN PRN Reason: Cough and congestion Last Admin: 11/11/17 22:36 Dose: 5 ml Thiamine HCl (Vitamin B1 Tab) 100 mg PO Q8 [facility] Last Admin: 11/11/17 21:16 Dose: 100 mg Verapamil HCl (Calan Tab) 40 mg PO TID [facility] Last Admin: 11/11/17 17:33 Dose: 40 mg - Labs Labs: 11/11/17 06:20 11/11/17 06:20 PT 12.3 SECONDS (9.4-12.5) 11/07/17 10:39 INR 1.07 (0.93-1.08) 11/07/17 10:39 APTT 33.1 Seconds (25.1-36.5) 11/07/17 10:39 Attending/Attestation - Attestation I have personally seen and examined this patient.: Yes I have fully participated in the care of the patient.: Yes I have reviewed all pertinent clinical information, including history, physical exam and plan: Yes Notes (Text): harish 11/11/17 22:47
--- NOTE | 2017-11-11 13:51 | CARD ---
APPROVED REPORT EXAM: Two-dimensional and M-mode echocardiogram with Doppler and color Doppler. INDICATION SVT 2D DIMENSIONS Left Atrium (2D)4.1 (1.6-4.0cm)IVSd1.0 (0.7-1.1cm) LVDd4.3 (3.9-5.9cm)PWd1.2 (0.7-1.1cm) LVDs3.1 (2.5-4.0cm)FS (%) 28.7 % LVEF (%)55.6 (>50%) M-Mode DIMENSIONS Aortic Root2.90 (2.2-3.7cm)Aortic Cusp Exc.1.50 (1.5-2.0cm) Aortic Valve AoV Peak Kihrdhoy434.0cm/Melinda Peak GR.14mmHg Mitral Valve E/A ratio0.0 TDI E/Lateral E'0.0E/Medial E'0.0 Pulmonary Valve PV Peak Azoqckcn52.5cm/sPV Peak Grad.2mmHg Tricuspid Valve TR Peak [id number]/sRAP [id number] Peak Gr.36mmHg [id number] LEFT VENTRICLE The left ventricle is normal size. There is normal left ventricular wall thickness. The left ventricular function is normal.EF-55-60% There is normal LV segmental wall motion. Transmitral Doppler flow pattern is Grade II-pseudonormal filling dynamics. No left ventricle thrombus noted on this study. There is no ventricular septal defect visualized. There is no left ventricular aneurysm. There is no mass noted in the left ventricle. RIGHT VENTRICLE The right ventricle is normal size. There is normal right ventricular wall thickness. The right ventricular systolic function is normal. ATRIA The left atrium is mildly dilated. The right atrium size is normal. The interatrial septum is intact with no evidence for an atrial septal defect. AORTIC VALVE The aortic valve is mildly thickened but opens well. The aortic valve is mildly to moderately sclerotic. No aortic regurgitation is present. There is no aortic valvular stenosis. There is no aortic valvular vegetation. MITRAL VALVE The mitral valve is thickened but opens well. Mitral regurgitation is mild to moderate. There is no mitral valve stenosis. There is no evidence of mitral valve prolapse. TRICUSPID VALVE The tricuspid valve leaflets are thickened , but open well. There is mild tricuspid regurgitation.[id number] mmof hg. There is no tricuspid valve stenosis. There is no tricuspid valve prolapse or vegetation. PULMONIC VALVE The pulmonic valve is not well visualized, but Possibly Normal. GREAT VESSELS The aortic root is normal in size. The ascending aorta is normal in size. The pulmonary artery is normal. The IVC is normal in size and collapses >50% with inspiration. PERICARDIAL EFFUSION There is no pleural effusion. There is no pericardial effusion. <Conclusion> The left ventricle is normal size. There is normal left ventricular wall thickness. The left ventricular function is normal.EF-55-60% Mitral regurgitation is mild to moderate. There is mild tricuspid regurgitation.[id number] mmof hg. The IVC is normal in size and collapses >50% with inspiration. There is no pericardial effusion.
[2017-11-11] MEDS: levoFLOXacin 750 mg in D5W 750 MG/150 ML BAG IVPB SCH (14:06)
--- NOTE | 2017-11-11 15:34 | PN ---
DATE: 11/11/2017 NEUROLOGY FOLLOWUP CHIEF COMPLAINT: Possible altered mental status. SUBJECTIVE: The patent underwent an MRI of the brain with contrast, which showed no abnormal enhancement of the brain and just some chronic ischemic changes. She had a lumbar puncture. Most of the workup is currently pending, but has an elevated protein of 108, elevated glucose of 73 and elevated neutrophils and lymphocytes, most likely consistent with a possible encephalitis picture. The patient is on acyclovir, meropenem and vancomycin as per ID for coverage of encephalitis. The patient has waxing and waning confusional episodes. She had a bout of SVT, which was likely secondary to hypokalemia. Cardiology is on board. 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 REVIEW OF SYSTEMS: Fourteen-point review of systems are negative except as per the HPI. ALLERGIES: ALLERGIC TO SULFA MEDS. SOCIAL HISTORY: Occasional EtOH use. No illicit drug use. Former smoker. MEDICATIONS: Reviewed by nurse's reconciliation sheet. FAMILY HISTORY: Noncontributory. PHYSICAL EXAMINATION: VITAL SIGNS: Temperature 99.6, pulse rate of 90, blood pressure 113/76, respiratory rate of 19, oxygen saturation 96% by room air. GENERAL: The patient is lying in bed, in no acute distress. HEENT: Atraumatic, normocephalic. PERRLA. Extraocular muscles intact. NECK: Supple. No JVD. No adenopathy noted. LUNGS: Clear to auscultation. No adventitious sounds. HEART: S1, S2. Normal rate and rhythm. No murmurs, rubs or gallops. ABDOMEN: Soft, nontender and nondistended. Bowel sounds are present. EXTREMITIES: No clubbing. No cyanosis. Peripheral pulses 2+ felt bilaterally. NEUROLOGIC: The patient is alert and oriented to person, place, not much to year. Recall after 5 minutes is 1/3. Poor attention span. Slow thought process. Cranial nerves II through XII intact. Motor exam: Slight increased tone throughout. Moves all extremities equally. No pronator drift seen. Sensory exam: Withdraws to localized and noxious stimulus. Light touch, pinprick, proprioception are intact. DTRs are 2+ throughout. Coordination: Nhcedt-ba-yufu intact. No dysmetria noted. Gait is deferred for now. LABORATORY DATA: Sodium is 138, potassium 3.2, chloride of 105, carbon dioxide of 26, BUN of 9, creatinine 0.7, random glucose 115. 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 Came in with generalized weakness and anorexia for the past 4-5 days with subjective fevers, chills, some rhinorrhea, sore throat and possible intermittent visual hallucinations and waxing and waning confusional episodes. Initial MRI of the brain as well as MRI of brain with contrast showed no evidence of any abnormal enhancement of the meninges or intracranial structures. She has elevated prolactin in addition to elevated liver function tests, which is consistent with some type of ongoing infection. Overall, she had lumbar puncture, which showed elevated protein, elevated neutrophils, lymphocytes and glucose, indicates some form of encephalitis, which she is on antibiotic coverage with antivirals, vancomycin and acyclovir and meropenem. She also is having waxing and waning delirium also to underlying acute medical condition. Supraventricular tachycardia was secondary to hypokalemia. At this time, we will recommend, 1. Follow up with Infectious Disease's recommendations in regards to encephalitis picture and her currently NMDA labs are pending. CSF HSV and CMV and CSF 14-3-3 protein currently pending. 2. Monitor electrolytes and correct accordingly. 3. Thiamine 100 mg IV every 12 hours for neuronal activation. 4. Delirium precautions. 5. PT/OT evaluation. Thank you for this followup. Cristiano Jauregui MD
--- NOTE | 2017-11-11 16:56 | PN ---
DATE: 11/11/2017 SUBJECTIVE: The patient is in bed, in no acute distress and continues to have low-grade fevers intermittently. PHYSICAL EXAMINATION: VITAL SIGNS: Temperature is 99, blood pressure is 130/80, respiratory rate of 20, heart rate of 140, T-max is 100.5. HEENT: Unremarkable. NECK: Supple. LUNGS: Have decreased breath sounds. HEART: Normal S1, S2. ABDOMEN: Soft, nontender. LABORATORY DATA: Laboratory examination reveals the patient's white count of 7.1, hemoglobin of 10, platelets of 199, 89% granulocytosis, the patient has 98% polys. Coagulation is noted. Chemistries reveals a BUN of 9, creatinine of 0.7. The sodium is 138. LFTs are elevated. Renal function is within normal limits. Urinalysis is unremarkable. There is a trace of coarse granular casts. Spinal fluid reveals 4 WBCs, over 2000 RBCs, 72% neutrophils, 23% lymphocytes and protein in the spinal fluid is 108. Serology reveals RPR is negative and FTA is negative and hepatitis profile was all negative and herpes type 1 IgG antibody is negative, type 2 antibody is negative, type 1 is positive IgG and influenza type A is negative. Microbiology reveals the blood cultures are no growth. Urine culture has probable contamination. The patient had a CAT scan of the chest, which reveals dense alveolar infiltrates in the right lower lobe and posterior right upper lobe patchy infiltrates are seen. Anterior upper lobe and left all consistent with multifocal pneumonia. The patient had an MRI of the brain with contrast, which shows minimal age-related neuro degenerative changes. Case was discussed with Dr. Cristiano Jauregui. His progress note is reviewed. His input is appreciated. ASSESSMENT AND PLAN: A 62-year-old female with hypertension, left ear deafness due to multiple episodes of mastoiditis, presenting with fever, tachycardia, dyspnea, leukocytosis, systemic inflammatory response syndrome with acute encephalitis and sepsis with community-acquired pneumonia, on vancomycin, meropenem, acyclovir and Levaquin. I am waiting for cerebrospinal fluid cultures. If her spinal fluid cultures are negative, we will discontinue the vancomycin. Also waiting for urine for Legionella antigen and sputum culture. We will repeat a procalcitonin, which was initially elevated. Also check on the sputum culture and spinal fluid culture and we will follow closely with you. We are also waiting for a cerebrospinal fluid for herpes PCR. Dr. Jauregui has also ordered West Nile NMDA receptor and BOB virus DNA and 14-3-3 Prion disease. We will follow with you. Anjel Vaughn MD
[2017-11-12 00:42] LABS: SOURCE: PLASMA
[2017-11-12] MEDS: Promethazine/Cod 6.25mg-10mg/5ml Syr UD PO PRN ×4 (03:04→19:09)
[2017-11-12] MEDS: Pantoprazole 40 mg EC Tab PO SCH (05:30)
--- NOTE | 2017-11-12 07:37 | CP.PCM.PN ---
Subjective - Date & Time of Evaluation Date of Evaluation: 11/12/17 Time of Evaluation: 06:25 - Subjective Subjective: Awake, lying in bed, shortness of breath, denies chest pain, feels much better Reason for consultation and follow up: Cardiac evaluation, Sinus ventricular tachycardia ,hypertension Seen and examined by me and Dr. Mariano Objective - Vital Signs/Intake and Output Vital Signs (last 24 hours): Temp Pulse Resp BP Pulse Ox 97.8 F 66 20 123/86 100 11/12/17 06:00 11/12/17 06:00 11/12/17 06:00 11/12/17 06:00 11/12/17 06:00 Intake and Output: 11/12/17 11/12/17 06:59 18:59 Intake Total 120 1040 Balance 120 1040 - Medications Medications: Current Medications Acetaminophen (Tylenol 325mg Tab) 650 mg PO Q4H PRN PRN Reason: Fever >100.4 F Last Admin: 11/11/17 00:00 Dose: 650 mg Al Hydrox/Mg Hydrox/Simethicone (Maalox Plus 30 Ml) 30 ml PO DAILY PRN PRN Reason: Indigestion / Heartburn Fluticasone Propionate (Flonase) 2 actuation NS DAILY [facility] Last Admin: 11/11/17 09:21 Dose: 2 spr Potassium Chloride/Dextrose/Sod Cl (Potassium Chl 20 Meq In D5-1/2ns) 1,000 mls @ 80 mls/hr IV .[id number] [facility] Last Admin: 11/11/17 20:15 Dose: 80 mls/hr Levofloxacin/Dextrose (Levaquin 750mg) 750 mg in 150 mls @ 100 mls/hr IVPB DAILY [facility] PRN Reason: Protocol Stop: 11/20/17 13:01 Last Admin: 11/11/17 14:06 Dose: 100 mls/hr Levalbuterol HCl (Xopenex) 0.63 mg IH [id number] PRN PRN Reason: Wheezing Metoprolol Tartrate (Lopressor) 50 mg PO BRKDIN [facility] Last Admin: 11/11/17 17:33 Dose: 50 mg Pantoprazole Sodium (Protonix Ec Tab) 40 mg PO 0600 [facility] Last Admin: 11/12/17 05:30 Dose: 40 mg Potassium Phos/Sodium Phos (Neutra-Phos) 1 pkt PO DAILY [facility] Last Admin: 11/11/17 09:21 Dose: 1 pkt Prednisone (Prednisone Tab) 30 mg PO DAILY [facility] Last Admin: 11/11/17 09:21 Dose: 30 mg Promethazine HCl/Codeine (Phenergan/Codeine Oral Syrup) 5 ml PO Q4H PRN PRN Reason: Cough and congestion Last Admin: 11/12/17 03:04 Dose: 5 ml Thiamine HCl (Vitamin B1 Tab) 100 mg PO Q8 [facility] Last Admin: 11/12/17 05:30 Dose: 100 mg Verapamil HCl (Calan Tab) 40 mg PO TID [facility] Last Admin: 11/11/17 17:33 Dose: 40 mg - Labs Labs: 11/11/17 06:20 11/11/17 06:20 PT 12.3 SECONDS (9.4-12.5) 11/07/17 10:39 INR 1.07 (0.93-1.08) 11/07/17 10:39 APTT 33.1 Seconds (25.1-36.5) 11/07/17 10:39 - Constitutional Appears: In Acute Distress - Head Exam Head Exam: NORMOCEPHALIC - Eye Exam Eye Exam: Normal appearance - ENT Exam ENT Exam: Mucous Membranes Moist - Respiratory Exam Respiratory Exam: Decreased Breath Sounds, NORMAL BREATHING PATTERN - Cardiovascular Exam Cardiovascular Exam: REGULAR RHYTHM, +S1, +S2 Additional comments: NSR telemetry - GI/Abdominal Exam GI & Abdominal Exam: Soft, Normal Bowel Sounds - Extremities Exam Extremities Exam: Normal Capillary Refill - Neurological Exam Neurological Exam: Alert, Awake, Oriented x3 - Psychiatric Exam Psychiatric exam: Normal Affect, Normal Mood - Skin Skin Exam: Intact, Normal Color, Warm Assessment and Plan - Assessment and Plan (Free Text) Assessment: A 62 year old female who was brought to the ER due to weakness,no appetite.While in telemetry, rhythm went into SVT at 300/min. Initial EKG normal sinus rhythm with APC's. She has history of multiple ear surgery due to mastoiditis, hypertension, obese. Plan: Feeling much better No wheezing ID on consult for possible encephalitis On Lopressor 50 mg BID Continue low dose oral prednisone Respiratory to give nebulizer treatment as ordered Continue current medications Continue current treatment Will follow up Plan and treatment discussed with Dr. Mariano
--- NOTE | 2017-11-12 07:38 | CP.PCM.PN ---
Subjective - Subjective Subjective: Awake, lying in bed, shortness of breath, denies chest pain, feels much better Reason for consultation and follow up: Cardiac evaluation, Sinus ventricular tachycardia ,hypertension Seen and examined by me and Dr. Mariano Objective - Vital Signs/Intake and Output Vital Signs (last 24 hours): Temp Pulse Resp BP Pulse Ox 97.8 F 66 20 123/86 100 11/12/17 06:00 11/12/17 06:00 11/12/17 06:00 11/12/17 06:00 11/12/17 06:00 Intake and Output: 11/12/17 11/12/17 06:59 18:59 Intake Total 120 1040 Balance 120 1040 - Medications Medications: Current Medications Acetaminophen (Tylenol 325mg Tab) 650 mg PO Q4H PRN PRN Reason: Fever >100.4 F Last Admin: 11/11/17 00:00 Dose: 650 mg Al Hydrox/Mg Hydrox/Simethicone (Maalox Plus 30 Ml) 30 ml PO DAILY PRN PRN Reason: Indigestion / Heartburn Fluticasone Propionate (Flonase) 2 actuation NS DAILY [facility] Last Admin: 11/11/17 09:21 Dose: 2 spr Potassium Chloride/Dextrose/Sod Cl (Potassium Chl 20 Meq In D5-1/2ns) 1,000 mls @ 80 mls/hr IV .[id number] [facility] Last Admin: 11/11/17 20:15 Dose: 80 mls/hr Levofloxacin/Dextrose (Levaquin 750mg) 750 mg in 150 mls @ 100 mls/hr IVPB DAILY [facility] PRN Reason: Protocol Stop: 11/20/17 13:01 Last Admin: 11/11/17 14:06 Dose: 100 mls/hr Levalbuterol HCl (Xopenex) 0.63 mg IH [id number] PRN PRN Reason: Wheezing Metoprolol Tartrate (Lopressor) 50 mg PO BRKDIN [facility] Last Admin: 11/11/17 17:33 Dose: 50 mg Pantoprazole Sodium (Protonix Ec Tab) 40 mg PO 0600 [facility] Last Admin: 11/12/17 05:30 Dose: 40 mg Potassium Phos/Sodium Phos (Neutra-Phos) 1 pkt PO DAILY [facility] Last Admin: 11/11/17 09:21 Dose: 1 pkt Prednisone (Prednisone Tab) 30 mg PO DAILY [facility] Last Admin: 11/11/17 09:21 Dose: 30 mg Promethazine HCl/Codeine (Phenergan/Codeine Oral Syrup) 5 ml PO Q4H PRN PRN Reason: Cough and congestion Last Admin: 11/12/17 03:04 Dose: 5 ml Thiamine HCl (Vitamin B1 Tab) 100 mg PO Q8 [facility] Last Admin: 11/12/17 05:30 Dose: 100 mg Verapamil HCl (Calan Tab) 40 mg PO TID [facility] Last Admin: 11/11/17 17:33 Dose: 40 mg - Labs Labs: 11/11/17 06:20 11/11/17 06:20 PT 12.3 SECONDS (9.4-12.5) 11/07/17 10:39 INR 1.07 (0.93-1.08) 11/07/17 10:39 APTT 33.1 Seconds (25.1-36.5) 11/07/17 10:39
--- NOTE | 2017-11-12 08:25 | CP.PCM.PN ---
Subjective - Date & Time of Evaluation Date of Evaluation: 11/12/17 Time of Evaluation: 07:45 - Subjective Subjective: Patient is seen this morning. She is more awake and alert. According to the , she did not have any hallucinations yesterday. Objective - Vital Signs/Intake and Output Vital Signs (last 24 hours): Temp Pulse Resp BP Pulse Ox 97.8 F 66 20 123/86 100 11/12/17 06:00 11/12/17 06:00 11/12/17 06:00 11/12/17 06:00 11/12/17 06:00 Intake and Output: 11/12/17 11/12/17 06:59 18:59 Intake Total 120 1040 Balance 120 1040 - Medications Medications: Current Medications Acetaminophen (Tylenol 325mg Tab) 650 mg PO Q4H PRN PRN Reason: Fever >100.4 F Last Admin: 11/11/17 00:00 Dose: 650 mg Al Hydrox/Mg Hydrox/Simethicone (Maalox Plus 30 Ml) 30 ml PO DAILY PRN PRN Reason: Indigestion / Heartburn Fluticasone Propionate (Flonase) 2 actuation NS DAILY [facility] Last Admin: 11/11/17 09:21 Dose: 2 spr Potassium Chloride/Dextrose/Sod Cl (Potassium Chl 20 Meq In D5-1/2ns) 1,000 mls @ 80 mls/hr IV .[id number] [facility] Last Admin: 11/11/17 20:15 Dose: 80 mls/hr Levofloxacin/Dextrose (Levaquin 750mg) 750 mg in 150 mls @ 100 mls/hr IVPB DAILY [facility] PRN Reason: Protocol Stop: 11/20/17 13:01 Last Admin: 11/11/17 14:06 Dose: 100 mls/hr Levalbuterol HCl (Xopenex) 0.63 mg IH [id number] PRN PRN Reason: Wheezing Metoprolol Tartrate (Lopressor) 50 mg PO BRKDIN [facility] Last Admin: 11/11/17 17:33 Dose: 50 mg Pantoprazole Sodium (Protonix Ec Tab) 40 mg PO 0600 [facility] Last Admin: 11/12/17 05:30 Dose: 40 mg Potassium Phos/Sodium Phos (Neutra-Phos) 1 pkt PO DAILY [facility] Last Admin: 11/11/17 09:21 Dose: 1 pkt Prednisone (Prednisone Tab) 30 mg PO DAILY [facility] Last Admin: 11/11/17 09:21 Dose: 30 mg Promethazine HCl/Codeine (Phenergan/Codeine Oral Syrup) 5 ml PO Q4H PRN PRN Reason: Cough and congestion Last Admin: 11/12/17 03:04 Dose: 5 ml Thiamine HCl (Vitamin B1 Tab) 100 mg PO Q8 [facility] Last Admin: 11/12/17 05:30 Dose: 100 mg Verapamil HCl (Calan Tab) 40 mg PO TID [facility] Last Admin: 11/11/17 17:33 Dose: 40 mg - Labs Labs: 11/11/17 06:20 11/11/17 06:20 PT 12.3 SECONDS (9.4-12.5) 11/07/17 10:39 INR 1.07 (0.93-1.08) 11/07/17 10:39 APTT 33.1 Seconds (25.1-36.5) 11/07/17 10:39 - Constitutional Appears: No Acute Distress - Head Exam Head Exam: ATRAUMATIC, NORMOCEPHALIC - Respiratory Exam Respiratory Exam: Decreased Breath Sounds, NORMAL BREATHING PATTERN - Cardiovascular Exam Cardiovascular Exam: +S1, +S2 - GI/Abdominal Exam GI & Abdominal Exam: Soft, Normal Bowel Sounds. absent: Tenderness - Neurological Exam Neurological Exam: Alert, Awake, Oriented x3 Assessment and Plan - Assessment and Plan (Free Text) Assessment: Sepsis Multifocal pneumonia Legionella Antigen positive Encephalitis HTN Plan: Patient is improving. CT chest shows multifocal pneumonia. Lumbar puncture results consist with encephalitis. Urine for legionella is positive. continue antibiotics as per infectious disease. continue PT. continue Flonase.
[2017-11-12] MEDS ORDERED: Potassium Chloride 20 mEq ER Tab PO STA (09:18)
--- NOTE | 2017-11-12 09:29 | CARD ---
APPROVED REPORT EKG Measurement Heart [id number] <Conclusion> Sinus rhythm with short SC Otherwise normal ECG
[2017-11-12] MEDS: levoFLOXacin 750 mg in D5W 750 MG/150 ML BAG IVPB SCH (09:32)
[2017-11-12] MEDS: Potassium & Sodium Phosphate PO SCH (09:34)
[2017-11-12] MEDS: Fluticasone Nasal 50 mcg/Spray NS SCH (10:31)
--- NOTE | 2017-11-12 10:41 | CP.PCM.PN ---
<Ronna Alatorre - Last Filed: 11/12/17 14:06> Subjective - Date & Time of Evaluation Date of Evaluation: 11/12/17 Time of Evaluation: 09:00 - Subjective Subjective: PGY-[address] Andrews's service Patient seen and examined at bedside. No acute distress. Chart reviewed. She states that she if feeling much better today. Patient denies abd pain, diarrhea , constipation, n/v. She denies any signs of bleeding. She is tolerating heart health diet. Objective - Vital Signs/Intake and Output Vital Signs (last 24 hours): Temp Pulse Resp BP Pulse Ox 97.8 F 73 20 123/86 100 11/12/17 06:00 11/12/17 09:34 11/12/17 06:00 11/12/17 09:34 11/12/17 06:00 Intake and Output: 11/12/17 11/12/17 06:59 18:59 Intake Total 120 1040 Balance 120 1040 - Medications Medications: Current Medications Acetaminophen (Tylenol 325mg Tab) 650 mg PO Q4H PRN PRN Reason: Fever >100.4 F Last Admin: 11/11/17 00:00 Dose: 650 mg Al Hydrox/Mg Hydrox/Simethicone (Maalox Plus 30 Ml) 30 ml PO DAILY PRN PRN Reason: Indigestion / Heartburn Fluticasone Propionate (Flonase) 2 actuation NS DAILY [facility] Last Admin: 11/12/17 10:31 Dose: 2 spr Potassium Chloride/Dextrose/Sod Cl (Potassium Chl 20 Meq In D5-1/2ns) 1,000 mls @ 80 mls/hr IV .[id number] [facility] Last Admin: 11/11/17 20:15 Dose: 80 mls/hr Levofloxacin/Dextrose (Levaquin 750mg) 750 mg in 150 mls @ 100 mls/hr IVPB DAILY [facility] PRN Reason: Protocol Stop: 11/20/17 13:01 Last Admin: 11/12/17 09:32 Dose: 100 mls/hr Levalbuterol HCl (Xopenex) 0.63 mg IH [id number] PRN PRN Reason: Wheezing Metoprolol Tartrate (Lopressor) 50 mg PO BRKDIN [facility] Last Admin: 11/12/17 09:34 Dose: 50 mg Pantoprazole Sodium (Protonix Ec Tab) 40 mg PO 0600 [facility] Last Admin: 11/12/17 05:30 Dose: 40 mg Potassium Chloride (K-Dur 20 Meq Er Tab) 40 meq PO ONCE ONE Stop: 11/12/17 15:01 Potassium Phos/Sodium Phos (Neutra-Phos) 1 pkt PO DAILY [facility] Last Admin: 11/12/17 09:34 Dose: 1 pkt Prednisone (Prednisone Tab) 30 mg PO DAILY [facility] Last Admin: 11/12/17 09:34 Dose: 30 mg Promethazine HCl/Codeine (Phenergan/Codeine Oral Syrup) 5 ml PO Q4H PRN PRN Reason: Cough and congestion Last Admin: 11/12/17 09:33 Dose: 5 ml Thiamine HCl (Vitamin B1 Tab) 100 mg PO Q8 [facility] Last Admin: 11/12/17 05:30 Dose: 100 mg Verapamil HCl (Calan Tab) 40 mg PO TID [facility] Last Admin: 11/12/17 09:33 Dose: 40 mg - Labs Labs: 11/11/17 06:20 11/11/17 06:20 PT 12.3 SECONDS (9.4-12.5) 11/07/17 10:39 INR 1.07 (0.93-1.08) 11/07/17 10:39 APTT 33.1 Seconds (25.1-36.5) 11/07/17 10:39 - Constitutional Appears: Well, No Acute Distress - Head Exam Head Exam: ATRAUMATIC, NORMAL INSPECTION, NORMOCEPHALIC - Eye Exam Eye Exam: EOMI, Normal appearance - ENT Exam ENT Exam: Mucous Membranes Moist - Respiratory Exam Respiratory Exam: Clear to Ausculation Bilateral, NORMAL BREATHING PATTERN. absent: Rales, Rhonchi, Wheezes, Respiratory Distress - Cardiovascular Exam Cardiovascular Exam: REGULAR RHYTHM. absent: Bradycardia, Tachycardia - GI/Abdominal Exam GI & Abdominal Exam: Soft, Normal Bowel Sounds. absent: Distended, Firm, Guarding, Tenderness - Extremities Exam Extremities Exam: Normal Inspection. absent: Pedal Edema, Tenderness - Neurological Exam Neurological Exam: Alert, Awake, Oriented x3 - Skin Skin Exam: Dry, Intact, Normal Color, Warm Assessment and Plan - Assessment and Plan (Free Text) Assessment: 62-year-old female with a past medical history of left ear deafness presented for weakness, muscle ache, and dizzy. Fever Elevated liver enzyme, differentials to consider is medication induced, alcoholic hepatitis, or Rhabdomylosis, pt elevated total creatinine kinase, elevated LDH Poor appetite History of left ear deafness Hypokalemia Plan: hepatitis panel was negative abd US was negative Patient may benefit from CT scan of abdomen and pelvis but we will currently hold off Monitor electrolytes and replace as necessary On IV antibiotics as per ID LFT's continue to trending up, most likely due to medication will continue to trend LFTs ID following, will discuss antibiotics Patient will most likely need outpatient follow up for endoscopy seen and discussed with Dr. Andrews <Kelin Andrews V - Last Filed: 11/13/17 01:27> Objective - Vital Signs/Intake and Output Vital Signs (last 24 hours): Temp Pulse Resp BP Pulse Ox 98 F 74 18 117/77 94 L 11/12/17 21:57 11/12/17 21:57 11/12/17 21:57 11/12/17 21:57 11/12/17 21:57 Intake and Output: 11/12/17 11/13/17 18:59 06:59 Intake Total 1040 420 Balance 1040 420 - Medications Medications: Current Medications Acetaminophen (Tylenol 325mg Tab) 650 mg PO Q4H PRN PRN Reason: Fever >100.4 F Last Admin: 11/11/17 00:00 Dose: 650 mg Al Hydrox/Mg Hydrox/Simethicone (Maalox Plus 30 Ml) 30 ml PO DAILY PRN PRN Reason: Indigestion / Heartburn Fluticasone Propionate (Flonase) 2 actuation NS DAILY [facility] Last Admin: 11/12/17 10:31 Dose: 2 spr Potassium Chloride/Dextrose/Sod Cl (Potassium Chl 20 Meq In D5-1/2ns) 1,000 mls @ 80 mls/hr IV .[id number] [facility] Last Admin: 11/13/17 00:45 Dose: 80 mls/hr Levofloxacin/Dextrose (Levaquin 750mg) 750 mg in 150 mls @ 100 mls/hr IVPB DAILY [facility] PRN Reason: Protocol Stop: 11/20/17 13:01 Last Admin: 11/12/17 09:32 Dose: 100 mls/hr Levalbuterol HCl (Xopenex) 0.63 mg IH [id number] PRN PRN Reason: Wheezing Metoprolol Tartrate (Lopressor) 50 mg PO BRKDIN [facility] Last Admin: 11/12/17 17:19 Dose: 50 mg Pantoprazole Sodium (Protonix Ec Tab) 40 mg PO 0600 [facility] Last Admin: 11/12/17 05:30 Dose: 40 mg Potassium Phos/Sodium Phos (Neutra-Phos) 1 pkt PO DAILY [facility] Last Admin: 11/12/17 09:34 Dose: 1 pkt Prednisone (Prednisone Tab) 30 mg PO DAILY [facility] Last Admin: 11/12/17 09:34 Dose: 30 mg Promethazine HCl/Codeine (Phenergan/Codeine Oral Syrup) 5 ml PO Q4H PRN PRN Reason: Cough and congestion Last Admin: 11/12/17 19:09 Dose: 5 ml Thiamine HCl (Vitamin B1 Tab) 100 mg PO Q8 [facility] Last Admin: 11/12/17 22:39 Dose: 100 mg Verapamil HCl (Calan Tab) 40 mg PO TID [facility] Last Admin: 11/12/17 17:19 Dose: 40 mg - Labs Labs: 11/11/17 06:20 11/12/17 10:50 PT 12.3 SECONDS (9.4-12.5) 11/07/17 10:39 INR 1.07 (0.93-1.08) 11/07/17 10:39 APTT 33.1 Seconds (25.1-36.5) 11/07/17 10:39 Attending/Attestation - Attestation I have personally seen and examined this patient.: Yes I have fully participated in the care of the patient.: Yes I have reviewed all pertinent clinical information, including history, physical exam and plan: Yes Notes (Text): This is an addendum to GI progress report dictated by the Lesly .The patient was seen and examined earlier. Medical records, lab studies, imagings were reviewed. Last 24 hours events reviewed. Agreed with the above treatment plan as outlined in the notes the with the addition of the following 11/13/17 01:26
[2017-11-12 11:22] LABS: BLOOD UREA NITROGEN 11 mg/dL (7-21); CALCIUM 7.8 mg/dL (8.4-10.5); GFR AFRICAN-AMERICAN > 60; GFR NON-AFRICAN AMERICAN > 60
[2017-11-12] MEDS: Potassium Ch 20mEq in D5-1/2NS 1,000 ML IV SCH (12:45)
--- NOTE | 2017-11-12 14:39 | CP.PCM.PN ---
Subjective - Date & Time of Evaluation Date of Evaluation: 11/12/17 Time of Evaluation: 10:00 - Subjective Subjective: Patient is more awake and alert, no fevers, no breathing better, still with cough but slowly improving, no fevers overnight. Objective - Vital Signs/Intake and Output Vital Signs (last 24 hours): Temp Pulse Resp BP Pulse Ox 97.8 F 73 20 123/86 100 11/12/17 06:00 11/12/17 09:34 11/12/17 06:00 11/12/17 09:34 11/12/17 06:00 Intake and Output: 11/12/17 11/12/17 06:59 18:59 Intake Total 120 1040 Balance 120 1040 - Medications Medications: Current Medications Acetaminophen (Tylenol 325mg Tab) 650 mg PO Q4H PRN PRN Reason: Fever >100.4 F Last Admin: 11/11/17 00:00 Dose: 650 mg Al Hydrox/Mg Hydrox/Simethicone (Maalox Plus 30 Ml) 30 ml PO DAILY PRN PRN Reason: Indigestion / Heartburn Fluticasone Propionate (Flonase) 2 actuation NS DAILY [facility] Last Admin: 11/11/17 09:21 Dose: 2 spr Potassium Chloride/Dextrose/Sod Cl (Potassium Chl 20 Meq In D5-1/2ns) 1,000 mls @ 80 mls/hr IV .[id number] [facility] Last Admin: 11/11/17 20:15 Dose: 80 mls/hr Levofloxacin/Dextrose (Levaquin 750mg) 750 mg in 150 mls @ 100 mls/hr IVPB DAILY [facility] PRN Reason: Protocol Stop: 11/20/17 13:01 Last Admin: 11/12/17 09:32 Dose: 100 mls/hr Levalbuterol HCl (Xopenex) 0.63 mg IH [id number] PRN PRN Reason: Wheezing Metoprolol Tartrate (Lopressor) 50 mg PO BRKDIN [facility] Last Admin: 11/12/17 09:34 Dose: 50 mg Pantoprazole Sodium (Protonix Ec Tab) 40 mg PO 0600 [facility] Last Admin: 11/12/17 05:30 Dose: 40 mg Potassium Chloride (K-Dur 20 Meq Er Tab) 40 meq PO ONCE ONE Stop: 11/12/17 15:01 Potassium Phos/Sodium Phos (Neutra-Phos) 1 pkt PO DAILY [facility] Last Admin: 11/12/17 09:34 Dose: 1 pkt Prednisone (Prednisone Tab) 30 mg PO DAILY [facility] Last Admin: 11/12/17 09:34 Dose: 30 mg Promethazine HCl/Codeine (Phenergan/Codeine Oral Syrup) 5 ml PO Q4H PRN PRN Reason: Cough and congestion Last Admin: 11/12/17 09:33 Dose: 5 ml Thiamine HCl (Vitamin B1 Tab) 100 mg PO Q8 [facility] Last Admin: 11/12/17 05:30 Dose: 100 mg Verapamil HCl (Calan Tab) 40 mg PO TID [facility] Last Admin: 11/12/17 09:33 Dose: 40 mg - Labs Labs: 11/11/17 06:20 11/11/17 06:20 PT 12.3 SECONDS (9.4-12.5) 11/07/17 10:39 INR 1.07 (0.93-1.08) 11/07/17 10:39 APTT 33.1 Seconds (25.1-36.5) 11/07/17 10:39 - Constitutional Appears: Non-toxic, Chronically Ill - Head Exam Head Exam: NORMAL INSPECTION - ENT Exam ENT Exam: Mucous Membranes Moist - Neck Exam Neck Exam: absent: Meningismus - Respiratory Exam Respiratory Exam: Decreased Breath Sounds - Cardiovascular Exam Cardiovascular Exam: +S1, +S2 - GI/Abdominal Exam GI & Abdominal Exam: Soft. absent: Tenderness Assessment and Plan - Assessment and Plan (Free Text) Plan: Assessment Systemic inflammatory response syndrome with acute encephalopathy, consider severe sepsis due to community-acquired with Legionellosis in this patient with history of otitis media and mastoiditis HTN history of left ear deafness Plan continue Levaquin for at least 2 weeks; reviewed CSF analysis which only showed 4 WBC's - MRI brain also not indicative of temporal lobe or any specific lobe affectation - Acyclovir has been d/c'ed - will still follow up follow up 14-3-3 protein, anti-NMDA receptor antibodies, BOB virus PCR, HSV PCR from CSF will continue to monitor clinically
[2017-11-12] MEDS ORDERED: Potassium Chloride 20 mEq ER Tab PO ONE (15:00)
--- NOTE | 2017-11-12 18:28 | PN ---
DATE: 11/12/2017 NEUROLOGY FOLLOWUP CHIEF COMPLAINT: Fall, possible altered mental status. SUBJECTIVE: The patient is seen and examined at bedside, is doing much better, is more alert, and is slowly improving. No fevers overnight, has legionella positive in the urine consistent with legionellosis. ID is on board. The patient is now on fluoroquinolone such as Levaquin which is the exact treatment. Mental status is much better and she walked around today x2 with her therapist. 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 REVIEW OF SYSTEMS: Fourteen-point review of systems is negative except in the HPI. ALLERGIES: ALLERGIC TO SULFA MEDS. SOCIAL HISTORY: Occasional EtOH use. No illicit drug use. Former smoker. MEDICATIONS: Reviewed by nurse per reconciliation sheet. FAMILY HISTORY: Noncontributory. PHYSICAL EXAMINATION: VITAL SIGNS: Temperature 97.7, pulse rate of 79, blood pressure 138/88, respiratory rate of 20. GENERAL: The patient is sitting up in bed, in no acute distress. HEENT: Atraumatic, normocephalic. PERRLA. Extraocular muscles intact. NECK: Supple. No JVD. No adenopathy noted. LUNGS: Decreased breath sounds bilaterally. HEART: S1 and S2. Normal rate and normal rhythm. No murmurs, rubs, or gallops. ABDOMEN: Soft, nontender, and nondistended. Bowel sounds present. EXTREMITIES: No clubbing. No cyanosis. Peripheral pulses 2+ felt bilaterally. NEUROLOGIC: The patient is alert and oriented to person, place, and year. Recall after 5 minutes is 1/3. Poor attention span. Slow thought process. Cranial nerves II through XII intact. Motor exam: Slight increased tone throughout. Moves all extremities equally. No pronator drift seen. Sensory exam: Withdraws to localized noxious stimulus. Light touch, pinprick, proprioception, and vibration are intact. DTRs are 2+ throughout. Coordination: [id number] intact. No dysmetria noted. Gait is deferred for now. LABORATORY DATA: Urine Legionella pneumophila antigen is positive. ASSESSMENT AND PLAN: This is a 62-year-old woman with history of hypertension, history of left ear deafness due to multiple episodes of mastoiditis, who is a former smoker, came in with generalized weakness and anorexia over the past 4 to 5 days with subjective fevers, chills, some rhinorrhea, sore throat, intermittent visual hallucinations, and waxing and waning confusional states without any motor weakness with her MRI of the brain with and without contrast showed no evidence of any abnormal enhancement of the meninges or intracranial structures. She continued to have elevated prolactin, elevated fevers, and elevated liver function tests and status post lumbar puncture which showed elevated protein and some cerebrospinal fluid pleocytosis which is consistent with encephalitis. Had a urine antigen for Legionella pneumophila which is positive and therefore her antivirals, vancomycin, and meropenem were discontinued and she is started on levofloxacin and also Levaquin which is the drug of choice and the patient is starting to improve much better. At this time, due to Legionella pneumophila encephalitis, superimposed underlying lung disease with legionellosis. At this time, we recommend; 1. Follow with Levaquin per ID's recommendations in terms of dosing and duration. 2. Monitor electrolytes and correct accordingly. 3. Thiamine 100 mg IV every 12 hours for neuron activation. 4. Delirium precautions. 5. PT/OT evaluation and she is clinically stable from my standpoint. Thank you for this followup. Cristiano Jauregui MD
[2017-11-13] MEDS: Potassium Ch 20mEq in D5-1/2NS 1,000 ML IV SCH ×2 (00:45→17:11)
[2017-11-13] MEDS: Promethazine/Cod 6.25mg-10mg/5ml Syr UD PO PRN ×4 (01:20→18:00)
[2017-11-13] MEDS: Pantoprazole 40 mg EC Tab PO SCH (06:22)
--- NOTE | 2017-11-13 07:04 | CP.PCM.PN ---
Subjective - Date & Time of Evaluation Date of Evaluation: 11/13/17 Time of Evaluation: 06:50 - Subjective Subjective: Feels much better, awake, lying in bed, denies shortness of breath, denies chest pain Reason for consultation and follow up: Cardiac evaluation, Sinus ventricular tachycardia ,hypertension Seen and examined by me and Dr. Fernández Objective - Vital Signs/Intake and Output Vital Signs (last 24 hours): Temp Pulse Resp BP Pulse Ox 98 F 74 18 117/77 94 L 11/12/17 21:57 11/12/17 21:57 11/12/17 21:57 11/12/17 21:57 11/12/17 21:57 Intake and Output: 11/13/17 11/13/17 06:59 18:59 Intake Total 1500 Balance 1500 - Medications Medications: Current Medications Acetaminophen (Tylenol 325mg Tab) 650 mg PO Q4H PRN PRN Reason: Fever >100.4 F Last Admin: 11/11/17 00:00 Dose: 650 mg Al Hydrox/Mg Hydrox/Simethicone (Maalox Plus 30 Ml) 30 ml PO DAILY PRN PRN Reason: Indigestion / Heartburn Fluticasone Propionate (Flonase) 2 actuation NS DAILY [facility] Last Admin: 11/12/17 10:31 Dose: 2 spr Potassium Chloride/Dextrose/Sod Cl (Potassium Chl 20 Meq In D5-1/2ns) 1,000 mls @ 80 mls/hr IV .[id number] [facility] Last Admin: 11/13/17 00:45 Dose: 80 mls/hr Levofloxacin/Dextrose (Levaquin 750mg) 750 mg in 150 mls @ 100 mls/hr IVPB DAILY [facility] PRN Reason: Protocol Stop: 11/20/17 13:01 Last Admin: 11/12/17 09:32 Dose: 100 mls/hr Levalbuterol HCl (Xopenex) 0.63 mg IH [id number] PRN PRN Reason: Wheezing Metoprolol Tartrate (Lopressor) 50 mg PO BRKDIN [facility] Last Admin: 11/12/17 17:19 Dose: 50 mg Pantoprazole Sodium (Protonix Ec Tab) 40 mg PO 0600 [facility] Last Admin: 11/13/17 06:22 Dose: 40 mg Potassium Phos/Sodium Phos (Neutra-Phos) 1 pkt PO DAILY [facility] Last Admin: 11/12/17 09:34 Dose: 1 pkt Prednisone (Prednisone Tab) 30 mg PO DAILY [facility] Last Admin: 11/12/17 09:34 Dose: 30 mg Promethazine HCl/Codeine (Phenergan/Codeine Oral Syrup) 5 ml PO Q4H PRN PRN Reason: Cough and congestion Last Admin: 11/13/17 06:27 Dose: 5 ml Thiamine HCl (Vitamin B1 Tab) 100 mg PO Q8 [facility] Last Admin: 11/13/17 06:22 Dose: 100 mg Verapamil HCl (Calan Tab) 40 mg PO TID [facility] Last Admin: 11/12/17 17:19 Dose: 40 mg - Labs Labs: 11/11/17 06:20 11/12/17 10:50 PT 12.3 SECONDS (9.4-12.5) 11/07/17 10:39 INR 1.07 (0.93-1.08) 11/07/17 10:39 APTT 33.1 Seconds (25.1-36.5) 11/07/17 10:39 - Constitutional Appears: No Acute Distress - Head Exam Head Exam: NORMOCEPHALIC - ENT Exam ENT Exam: Mucous Membranes Moist - Respiratory Exam Respiratory Exam: Decreased Breath Sounds, NORMAL BREATHING PATTERN - Cardiovascular Exam Cardiovascular Exam: +S1, +S2 - GI/Abdominal Exam GI & Abdominal Exam: Soft, Normal Bowel Sounds - Extremities Exam Extremities Exam: Normal Capillary Refill - Neurological Exam Neurological Exam: Alert, Awake, Oriented x3 - Psychiatric Exam Psychiatric exam: Normal Affect, Normal Mood - Skin Skin Exam: Intact, Normal Color, Warm Assessment and Plan - Assessment and Plan (Free Text) Assessment: A 62 year old female who was brought to the ER due to weakness,no appetite.While in telemetry, rhythm went into SVT at 300/min. Initial EKG normal sinus rhythm with APC's. She has history of multiple ear surgery due to mastoiditis, hypertension, obese. Plan: Wanted to go home Feeling much better Cardiac status stable On Lopressor 50 mg BID, Verapamil 40 mg TID Heart rate controlled, Blood pressure stable Transferred off telemetry ID and Neuro on consult Continue antibiotics as ordered Continue current medications Continue current treatment Physical therapy Will follow up Plan and treatment discussed with
--- NOTE | 2017-11-13 08:31 | CP.PCM.PN ---
Subjective - Date & Time of Evaluation Date of Evaluation: 11/13/17 Time of Evaluation: 08:00 - Subjective Subjective: Patient is seen this morning in room 574 bed 1. She is feeling better. Afebrile. Objective - Vital Signs/Intake and Output Vital Signs (last 24 hours): Temp Pulse Resp BP Pulse Ox 98 F 81 18 129/88 94 L 11/12/17 21:57 11/13/17 08:15 11/12/17 21:57 11/13/17 08:15 11/12/17 21:57 Intake and Output: 11/13/17 11/13/17 06:59 18:59 Intake Total 1500 Balance 1500 - Medications Medications: Current Medications Acetaminophen (Tylenol 325mg Tab) 650 mg PO Q4H PRN PRN Reason: Fever >100.4 F Last Admin: 11/11/17 00:00 Dose: 650 mg Al Hydrox/Mg Hydrox/Simethicone (Maalox Plus 30 Ml) 30 ml PO DAILY PRN PRN Reason: Indigestion / Heartburn Fluticasone Propionate (Flonase) 2 actuation NS DAILY [facility] Last Admin: 11/12/17 10:31 Dose: 2 spr Potassium Chloride/Dextrose/Sod Cl (Potassium Chl 20 Meq In D5-1/2ns) 1,000 mls @ 80 mls/hr IV .[id number] [facility] Last Admin: 11/13/17 00:45 Dose: 80 mls/hr Levofloxacin/Dextrose (Levaquin 750mg) 750 mg in 150 mls @ 100 mls/hr IVPB DAILY [facility] PRN Reason: Protocol Stop: 11/20/17 13:01 Last Admin: 11/12/17 09:32 Dose: 100 mls/hr Levalbuterol HCl (Xopenex) 0.63 mg IH [id number] PRN PRN Reason: Wheezing Metoprolol Tartrate (Lopressor) 50 mg PO BRKDIN [facility] Last Admin: 11/13/17 08:15 Dose: 50 mg Pantoprazole Sodium (Protonix Ec Tab) 40 mg PO 0600 [facility] Last Admin: 11/13/17 06:22 Dose: 40 mg Potassium Phos/Sodium Phos (Neutra-Phos) 1 pkt PO TID [facility] Prednisone (Prednisone Tab) 30 mg PO DAILY [facility] Last Admin: 11/12/17 09:34 Dose: 30 mg Promethazine HCl/Codeine (Phenergan/Codeine Oral Syrup) 5 ml PO Q4H PRN PRN Reason: Cough and congestion Last Admin: 11/13/17 06:27 Dose: 5 ml Thiamine HCl (Vitamin B1 Tab) 100 mg PO Q8 [facility] Last Admin: 11/13/17 06:22 Dose: 100 mg Verapamil HCl (Calan Tab) 40 mg PO TID [facility] Last Admin: 11/12/17 17:19 Dose: 40 mg - Labs Labs: 11/11/17 06:20 11/12/17 10:50 PT 12.3 SECONDS (9.4-12.5) 11/07/17 10:39 INR 1.07 (0.93-1.08) 11/07/17 10:39 APTT 33.1 Seconds (25.1-36.5) 11/07/17 10:39 - Constitutional Appears: No Acute Distress - Head Exam Head Exam: ATRAUMATIC, NORMOCEPHALIC - Respiratory Exam Respiratory Exam: Clear to Ausculation Bilateral, NORMAL BREATHING PATTERN - Cardiovascular Exam Cardiovascular Exam: +S1, +S2 - GI/Abdominal Exam GI & Abdominal Exam: Soft, Normal Bowel Sounds. absent: Tenderness - Neurological Exam Neurological Exam: Alert, Awake, Oriented x3 Assessment and Plan - Assessment and Plan (Free Text) Assessment: Legionella HTN Sinus Tachycardia Multifocal pneumonia Plan: Patient's urine positive for Legionella. Encephalitis, and pneumonia secondary to legionella. Patient currently on IV Levaquin. Will replace phosphorus and magnesium. Heart rate stable on Verapamil and Metoprolol. Discharge once antibiotics can be switched to oral.
[2017-11-13 08:48] VITALS: RESP 20
[2017-11-13] MEDS: levoFLOXacin 750 mg in D5W 750 MG/150 ML BAG IVPB SCH (09:39)
[2017-11-13] MEDS: Potassium & Sodium Phosphate PO SCH ×3 (09:42→17:10)
[2017-11-13] MEDS: Fluticasone Nasal 50 mcg/Spray NS SCH (10:27)
[2017-11-13] MEDS ORDERED: Magnesium Sulfate 1 gm in D5W 1 GM/100 ML BAG IVPB ONE (12:00)
--- NOTE | 2017-11-13 21:22 | PN ---
DATE: 11/13/2017 SUBJECTIVE: Patient is in bed, in no acute distress, nontoxic. PHYSICAL EXAMINATION: VITAL SIGNS: Temperature is 97, blood pressure is 120/80, respiratory rate of 20, heart rate of 80. HEENT: Unremarkable. NECK: Supple. LUNGS: Have decreased breath sounds. HEART: Normal S1, S2. ABDOMEN: Soft. LABORATORY EXAMINATION: Reveals a white count of 7.1, hemoglobin of 10, platelets of 199. Coagulation is noted and chemistries are reviewed and microbiology is reviewed. REVIEW OF ORDERS: Reveals the patient to be on IV Levaquin. Dr. Carter's note is noted from today. Dr. Jauregui's note from yesterday is reviewed. ASSESSMENT AND PLAN: This is a 62-year-old with sepsis, with legionella pneumonia, and acute encephalopathy. Multiple articles have been written on various central nervous system presentations of Legionella and states most unusual case with initially having no fevers and a negative chest x-ray, patient with severe sepsis and community-acquired pneumonia with legionella. Currently on Levaquin. After tomorrow morning's IV dose, may be able to switch to p.o. Levaquin with complete 14 days and follow up the remainder of the workup results. May be able to switch to p.o. in a.m. after the a.m. dose and be discharged. Anjel Vaughn MD
--- NOTE | 2017-11-14 01:36 | PN ---
DATE: 11/13/2017 SUBJECTIVE: This patient was seen and evaluated earlier today. Patient's was at bedside. Patient looks much improved. Tolerating the diet. Feels better. No complaints of any abdominal pain. PHYSICAL EXAMINATION: VITAL SIGNS: Temperature is 97.6, pulse 80, blood pressure is 122/84. HEENT: Atraumatic, anicteric. NECK: Supple. HEART: S1 and S2 heard. LUNGS: Bilateral air entry present. ABDOMEN: Soft. There is no tenderness. LABORATORY DATA: There is no recent labs. There is no recent liver enzymes. LFTs done on 11/11 shows AST was 310 and ALT was 205, alkaline phosphatase normal. IMPRESSION: This 62-year-old patient with a history of hypertension and left ear deafness, admitted with: 1. Fever, change of mental status. Patient had a lumbar puncture done and had elevated proteins; urine antigen for Legionella positive. 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 Patient is being on Levaquin. 2. History of EtOH abuse. Patient is being on now thiamine. 3. Elevated liver function tests, mainly transaminases, could be related to drug-induced Legionella less likely to be also considered. Patient did have ultrasound scan of the abdomen done before, showed no gallstones. Hepatitis profile has been negative. We will follow up liver function tests. Thank you very much for allowing me to participate in the care of the patient. Kelin Andrews MD [facility]
[2017-11-14] MEDS: Promethazine/Cod 6.25mg-10mg/5ml Syr UD PO PRN ×3 (01:42→17:07)
[2017-11-14] MEDS: Pantoprazole 40 mg EC Tab PO SCH (05:40)
[2017-11-14] MEDS: Potassium Ch 20mEq in D5-1/2NS 1,000 ML IV SCH (06:32)
--- NOTE | 2017-11-14 07:39 | CP.PCM.PN ---
Subjective - Date & Time of Evaluation Date of Evaluation: 11/14/17 Time of Evaluation: 07:10 - Subjective Subjective: Can hear on the right ear,Feels much better, awake, lying in bed, denies shortness of breath, denies chest pain Reason for consultation and follow up: Cardiac evaluation, Sinus ventricular tachycardia ,hypertension Seen and examined by me and Dr. Fernández Objective - Vital Signs/Intake and Output Vital Signs (last 24 hours): Temp Pulse Resp BP Pulse Ox 97.6 F 80 20 122/84 98 11/13/17 14:00 11/13/17 17:10 11/13/17 14:00 11/13/17 17:10 11/13/17 14:00 Intake and Output: 11/14/17 11/14/17 06:59 18:59 Intake Total 600 Balance 600 - Medications Medications: Current Medications Acetaminophen (Tylenol 325mg Tab) 650 mg PO Q4H PRN PRN Reason: Fever >100.4 F Last Admin: 11/11/17 00:00 Dose: 650 mg Al Hydrox/Mg Hydrox/Simethicone (Maalox Plus 30 Ml) 30 ml PO DAILY PRN PRN Reason: Indigestion / Heartburn Fluticasone Propionate (Flonase) 2 actuation NS DAILY [facility] Last Admin: 11/13/17 10:27 Dose: 1 spr Hydrochlorothiazide (Hydrodiuril) 25 mg PO DAILY [facility] Potassium Chloride/Dextrose/Sod Cl (Potassium Chl 20 Meq In D5-1/2ns) 1,000 mls @ 80 mls/hr IV .[id number] [facility] Last Admin: 11/14/17 06:32 Dose: 80 mls/hr Levofloxacin/Dextrose (Levaquin 750mg) 750 mg in 150 mls @ 100 mls/hr IVPB DAILY [facility] PRN Reason: Protocol Stop: 11/20/17 13:01 Last Admin: 11/13/17 09:39 Dose: 100 mls/hr Levalbuterol HCl (Xopenex) 0.63 mg IH [id number] PRN PRN Reason: Wheezing Metoprolol Tartrate (Lopressor) 50 mg PO BRKDIN [facility] Last Admin: 11/13/17 17:10 Dose: 50 mg Pantoprazole Sodium (Protonix Ec Tab) 40 mg PO 0600 [facility] Last Admin: 11/14/17 05:40 Dose: 40 mg Potassium Phos/Sodium Phos (Neutra-Phos) 1 pkt PO TID [facility] Last Admin: 11/13/17 17:10 Dose: 1 pkt Prednisone (Prednisone Tab) 30 mg PO DAILY [facility] Last Admin: 11/13/17 09:42 Dose: 30 mg Promethazine HCl/Codeine (Phenergan/Codeine Oral Syrup) 5 ml PO Q4H PRN PRN Reason: Cough and congestion Last Admin: 11/14/17 01:42 Dose: 5 ml Thiamine HCl (Vitamin B1 Tab) 100 mg PO Q8 [facility] Last Admin: 11/14/17 05:40 Dose: 100 mg Verapamil HCl (Calan Tab) 40 mg PO TID [facility] Last Admin: 11/13/17 17:10 Dose: 40 mg - Labs Labs: 11/11/17 06:20 11/12/17 10:50 PT 12.3 SECONDS (9.4-12.5) 11/07/17 10:39 INR 1.07 (0.93-1.08) 11/07/17 10:39 APTT 33.1 Seconds (25.1-36.5) 11/07/17 10:39 - Constitutional Appears: No Acute Distress - Head Exam Head Exam: NORMOCEPHALIC - Eye Exam Eye Exam: Normal appearance - ENT Exam ENT Exam: Mucous Membranes Moist Additional comments: deaf on left ear due to history of mastoiditis right ear sometimes get clogged and muffled hearing - Respiratory Exam Respiratory Exam: Decreased Breath Sounds, NORMAL BREATHING PATTERN - Cardiovascular Exam Cardiovascular Exam: +S1, +S2 - GI/Abdominal Exam GI & Abdominal Exam: Soft, Normal Bowel Sounds - Extremities Exam Extremities Exam: Normal Capillary Refill - Neurological Exam Neurological Exam: Alert, Awake, Oriented x3 - Psychiatric Exam Psychiatric exam: Normal Affect, Normal Mood - Skin Skin Exam: Intact, Normal Color, Warm Assessment and Plan - Assessment and Plan (Free Text) Assessment: A 62 year old female who was brought to the ER due to weakness,no appetite.While in telemetry, rhythm went into SVT at 300/min. Initial EKG normal sinus rhythm with APC's. She has history of multiple ear surgery due to mastoiditis, hypertension, obese. Positive legionella in urine, acute encephalitis,pneumonia. On IV levaquin. Plan: Feeling much better, right ear off and on can hear Cardiac status stable On Lopressor 50 mg BID, Verapamil 40 mg TID Heart rate controlled, Blood pressure stable On last dose of IV Levaquin today then switch to oral to continue for 14 days per ID Possible discharge today Continue current medications Continue current treatment Physical therapy Will follow up Plan and treatment discussed with
[2017-11-14 07:42] VITALS: PULSE 72; O2SAT 95
[2017-11-14 08:11] LABS: BLOOD UREA NITROGEN 12 mg/dL (7-21); CALCIUM 8.5 mg/dL (8.4-10.5); GFR AFRICAN-AMERICAN > 60; GFR NON-AFRICAN AMERICAN > 60
--- NOTE | 2017-11-14 08:32 | CP.PCM.PN ---
Subjective - Date & Time of Evaluation Date of Evaluation: 11/14/17 Time of Evaluation: 07:45 - Subjective Subjective: Patient is seen this morning. She is feeling better. Objective - Vital Signs/Intake and Output Vital Signs (last 24 hours): Temp Pulse Resp BP Pulse Ox 97.6 F 72 20 133/85 95 11/14/17 06:00 11/14/17 06:00 11/14/17 06:00 11/14/17 06:00 11/14/17 06:00 Intake and Output: 11/14/17 11/14/17 06:59 18:59 Intake Total 600 Balance 600 - Medications Medications: Current Medications Acetaminophen (Tylenol 325mg Tab) 650 mg PO Q4H PRN PRN Reason: Fever >100.4 F Last Admin: 11/11/17 00:00 Dose: 650 mg Al Hydrox/Mg Hydrox/Simethicone (Maalox Plus 30 Ml) 30 ml PO DAILY PRN PRN Reason: Indigestion / Heartburn Fluticasone Propionate (Flonase) 2 actuation NS DAILY [facility] Last Admin: 11/13/17 10:27 Dose: 1 spr Hydrochlorothiazide (Hydrodiuril) 25 mg PO DAILY [facility] Levofloxacin/Dextrose (Levaquin 750mg) 750 mg in 150 mls @ 100 mls/hr IVPB DAILY [facility] PRN Reason: Protocol Stop: 11/20/17 13:01 Last Admin: 11/13/17 09:39 Dose: 100 mls/hr Levalbuterol HCl (Xopenex) 0.63 mg IH [id number] PRN PRN Reason: Wheezing Metoprolol Tartrate (Lopressor) 50 mg PO BRKDIN [facility] Last Admin: 11/13/17 17:10 Dose: 50 mg Pantoprazole Sodium (Protonix Ec Tab) 40 mg PO 0600 [facility] Last Admin: 11/14/17 05:40 Dose: 40 mg Potassium Phos/Sodium Phos (Neutra-Phos) 1 pkt PO TID [facility] Last Admin: 11/13/17 17:10 Dose: 1 pkt Prednisone (Prednisone Tab) 20 mg PO DAILY [facility] Promethazine HCl/Codeine (Phenergan/Codeine Oral Syrup) 5 ml PO Q4H PRN PRN Reason: Cough and congestion Last Admin: 11/14/17 01:42 Dose: 5 ml Thiamine HCl (Vitamin B1 Tab) 100 mg PO Q8 [facility] Last Admin: 11/14/17 05:40 Dose: 100 mg Verapamil HCl (Calan Tab) 40 mg PO TID [facility] Last Admin: 11/13/17 17:10 Dose: 40 mg - Labs Labs: 11/11/17 06:20 11/14/17 07:00 PT 12.3 SECONDS (9.4-12.5) 11/07/17 10:39 INR 1.07 (0.93-1.08) 11/07/17 10:39 APTT 33.1 Seconds (25.1-36.5) 11/07/17 10:39 - Constitutional Appears: No Acute Distress - Head Exam Head Exam: ATRAUMATIC, NORMOCEPHALIC - Respiratory Exam Respiratory Exam: Clear to Ausculation Bilateral, NORMAL BREATHING PATTERN - Cardiovascular Exam Cardiovascular Exam: +S1, +S2 - GI/Abdominal Exam GI & Abdominal Exam: Soft, Normal Bowel Sounds. absent: Tenderness - Extremities Exam Extremities Exam: Pedal Edema - Neurological Exam Neurological Exam: Alert, Awake, Oriented x3 Assessment and Plan - Assessment and Plan (Free Text) Assessment: Legionella Pneumonia Electrolyte abnormalities Episode of SVT/AFib Encephalitis HTN LE edema Plan: Patient is feeling much better. We will discontinue IV fluids today. Potassium , magnesium and phosphorus now normalized. continue IV Levaquin for Legionella. Repeat urinalysis as patient had protein seen on initial urinalysis. Taper prednisone to 20 mg daily. Discharge in AM. Repeat LFTs today.
[2017-11-14 08:58] LABS: ALB/GLOB RATIO 0.9 (1.1-1.8); ALBUMIN 2.8 g/dL (3.0-4.8); BILIRUBIN,DIRECT 0.2 mg/dL (0.0-0.4)
[2017-11-14] MEDS: Potassium & Sodium Phosphate PO SCH ×3 (11:04→17:07)
[2017-11-14] MEDS: levoFLOXacin 750 mg in D5W 750 MG/150 ML BAG IVPB SCH (11:06)
[2017-11-14] MEDS: Fluticasone Nasal 50 mcg/Spray NS SCH (11:06)
--- NOTE | 2017-11-14 13:26 | PN ---
DATE: 11/14/2017 SUBJECTIVE: The patient is seen earlier today. The patient's is present. He states that the patient is back to herself. There is no nausea or vomiting. Her mental status is back to the baseline. There are no fevers and chills. PHYSICAL EXAMINATION: VITAL SIGNS: Temperature is 97, blood pressure is 130/80, respiratory rate of 20. HEENT: Examination of HEENT is unremarkable. NECK: Supple. LUNGS: Have decreased breath sounds. HEART: Normal S1, S2. ABDOMEN: Soft, nontender. LABORATORY DATA: Laboratory examination reveals a white count of 7.1, hemoglobin of 10, platelets of 199. BUN of 12, creatinine of 0.6. The patient had a procalcitonin of 0.72, initially it was 1.84. Serology is noted. ASSESSMENT AND PLAN: A 62-year-old female, long-time ex-smoker, who was admitted with change of mental status, reported to have a negative chest x-ray. No fevers. Was found to have sepsis with Legionella pneumonia with acute encephalopathy, most unusual presentation of the Legionella with central nervous system presentation, negative chest x-ray and negative fevers initially. Maybe able to switch to p.o. Levaquin and complete at least 14 days upon discharge. Anjel Vaughn MD
--- NOTE | 2017-11-14 16:10 | PN ---
DATE: 11/14/2017 SUBJECTIVE: This patient was seen and evaluated earlier today. The patient is comfortable. Tolerating the diet. No complaints of any abdominal pain. PHYSICAL EXAMINATION: VITAL SIGNS: Temperature is 97.6, pulse 72, blood pressure is 102/76. HEENT: Atraumatic, anicteric. NECK: Supple. HEART: S1 and S2 heard. LUNGS: Bilateral air entry present. ABDOMEN: Soft. There is no tenderness. EXTREMITIES: No cyanosis. No clubbing. LABORATORY DATA: The AST has come down to 124 and ALT to 204. IMPRESSION: This 82-year-old patient with a history of hypertension, history of left ear deafness, history of mastoiditis in the past. Admitted with fever, change of mental status and lumbar puncture done. Had elevated proteins and urine antigen for Legionella was positive. The patient is being now treated with antibiotics, Levaquin. The patient is also on steroid. The patient does have an elevated transaminases. History of ethyl alcohol use in the past. The patient did have an ultrasound done, which showed no gallstones. I would recommend followup of the liver function tests. The patient may benefit from the elective EGD and colonoscopy. I have discussed with the patient's who was at bedside at length. Kelin Andrews MD
[2017-11-14 18:46] LABS: SPECIMEN SOURCE CSF
[2017-11-14 19:58] LABS: PH,URINE 6.5 (4.7-8.0); URINE BILIRUBIN NEGATIVE (NEGATIVE); URINE BLOOD NEGATIVE (NEGATIVE); URINE GLUCOSE (UA) NEGATIVE (NEGATIVE); URINE LEUKOCYTE ESTERASE NEGATIVE Leu/uL (NEGATIVE); URINE PROTEIN NEGATIVE mg/dL (<30 mg/dL); URINE UROBILINOGEN 0.2 E.U./dL (<1 E.U./dL)
[2017-11-14 20:00] LABS: URINE APPEARANCE CLEAR (CLEAR); URINE COLOR YELLOW (YELLOW)
[2017-11-15] MEDS: Promethazine/Cod 6.25mg-10mg/5ml Syr UD PO PRN (05:15)
[2017-11-15] MEDS: Pantoprazole 40 mg EC Tab PO SCH (05:15)
--- NOTE | 2017-11-15 08:06 | CP.PCM.PN ---
Subjective - Date & Time of Evaluation Date of Evaluation: 11/15/17 Time of Evaluation: 06:35 - Subjective Subjective: Can hear on the right ear,Feels much better, awake, lying in bed, denies shortness of breath, denies chest pain Reason for consultation and follow up: Cardiac evaluation, Sinus ventricular tachycardia ,hypertension Seen and examined by me and Dr. Fernández Objective - Vital Signs/Intake and Output Vital Signs (last 24 hours): Temp Pulse Resp BP Pulse Ox 97.6 F 72 20 124/79 95 11/14/17 06:00 11/14/17 06:00 11/14/17 06:00 11/14/17 17:07 11/14/17 06:00 Intake and Output: 11/15/17 11/15/17 06:59 18:59 Intake Total 900 Balance 900 - Medications Medications: Current Medications Acetaminophen (Tylenol 325mg Tab) 650 mg PO Q4H PRN PRN Reason: Fever >100.4 F Last Admin: 11/11/17 00:00 Dose: 650 mg Al Hydrox/Mg Hydrox/Simethicone (Maalox Plus 30 Ml) 30 ml PO DAILY PRN PRN Reason: Indigestion / Heartburn Fluticasone Propionate (Flonase) 2 actuation NS DAILY [facility] Last Admin: 11/14/17 11:06 Dose: Not Given Hydrochlorothiazide (Hydrodiuril) 25 mg PO DAILY [facility] Last Admin: 11/14/17 13:24 Dose: 25 mg Levofloxacin/Dextrose (Levaquin 750mg) 750 mg in 150 mls @ 100 mls/hr IVPB DAILY [facility] PRN Reason: Protocol Stop: 11/20/17 13:01 Last Admin: 11/14/17 11:06 Dose: 100 mls/hr Levalbuterol HCl (Xopenex) 0.63 mg IH [id number] PRN PRN Reason: Wheezing Metoprolol Tartrate (Lopressor) 50 mg PO BRKDIN [facility] Last Admin: 11/14/17 17:07 Dose: 50 mg Pantoprazole Sodium (Protonix Ec Tab) 40 mg PO 0600 [facility] Last Admin: 11/15/17 05:15 Dose: 40 mg Prednisone (Prednisone Tab) 20 mg PO DAILY [facility] Last Admin: 11/14/17 11:05 Dose: 20 mg Promethazine HCl/Codeine (Phenergan/Codeine Oral Syrup) 5 ml PO Q4H PRN PRN Reason: Cough and congestion Last Admin: 11/15/17 05:15 Dose: 5 ml Thiamine HCl (Vitamin B1 Tab) 100 mg PO Q8 [facility] Last Admin: 11/15/17 05:15 Dose: 100 mg Verapamil HCl (Calan Tab) 40 mg PO TID [facility] Last Admin: 11/14/17 17:07 Dose: 40 mg - Labs Labs: 11/11/17 06:20 11/14/17 07:00 PT 12.3 SECONDS (9.4-12.5) 11/07/17 10:39 INR 1.07 (0.93-1.08) 11/07/17 10:39 APTT 33.1 Seconds (25.1-36.5) 11/07/17 10:39 - Constitutional Appears: No Acute Distress - Head Exam Head Exam: NORMOCEPHALIC - Eye Exam Eye Exam: Normal appearance - ENT Exam ENT Exam: Mucous Membranes Moist Additional comments: deaf on left ear due to mastoiditis muffled hearing on right ear - Respiratory Exam Respiratory Exam: Decreased Breath Sounds, NORMAL BREATHING PATTERN - Cardiovascular Exam Cardiovascular Exam: +S1, +S2 - GI/Abdominal Exam GI & Abdominal Exam: Soft, Normal Bowel Sounds - Extremities Exam Extremities Exam: Normal Capillary Refill - Neurological Exam Neurological Exam: Alert, Awake, Oriented x3 - Psychiatric Exam Psychiatric exam: Normal Affect, Normal Mood - Skin Skin Exam: Intact, Normal Color, Warm Assessment and Plan - Assessment and Plan (Free Text) Assessment: A 62 year old female who was brought to the ER due to weakness,no appetite.While in telemetry, rhythm went into SVT at 300/min. Initial EKG normal sinus rhythm with APC's. She has history of multiple ear surgery due to mastoiditis, hypertension, obese. Positive legionella in urine, acute encephalitis,pneumonia. On IV levaquin. Plan: For possible discharge today Feeling much better, Cardiac status stable On Lopressor 50 mg BID, Verapamil 40 mg TID Heart rate controlled, Blood pressure stable Last dose of IV Levaquin yesterday then switch to oral to continue for 14 days per ID to order Continue current medications Continue current treatment Physical therapy Will follow up Plan and treatment discussed with
--- NOTE | 2017-11-15 08:20 | CP.PCM.PN ---
Subjective - Date & Time of Evaluation Date of Evaluation: 11/15/17 Time of Evaluation: 07:45 - Subjective Subjective: Patient is seen this morning. She is feeling much better. She has no complaints this morning. Objective - Vital Signs/Intake and Output Vital Signs (last 24 hours): Temp Pulse Resp BP Pulse Ox 97.6 F 72 20 124/79 95 11/14/17 06:00 11/14/17 06:00 11/14/17 06:00 11/14/17 17:07 11/14/17 06:00 Intake and Output: 11/15/17 11/15/17 06:59 18:59 Intake Total 900 Balance 900 - Medications Medications: Current Medications Acetaminophen (Tylenol 325mg Tab) 650 mg PO Q4H PRN PRN Reason: Fever >100.4 F Last Admin: 11/11/17 00:00 Dose: 650 mg Al Hydrox/Mg Hydrox/Simethicone (Maalox Plus 30 Ml) 30 ml PO DAILY PRN PRN Reason: Indigestion / Heartburn Fluticasone Propionate (Flonase) 2 actuation NS DAILY [facility] Last Admin: 11/14/17 11:06 Dose: Not Given Hydrochlorothiazide (Hydrodiuril) 25 mg PO DAILY [facility] Last Admin: 11/14/17 13:24 Dose: 25 mg Levofloxacin/Dextrose (Levaquin 750mg) 750 mg in 150 mls @ 100 mls/hr IVPB DAILY [facility] PRN Reason: Protocol Stop: 11/20/17 13:01 Last Admin: 11/14/17 11:06 Dose: 100 mls/hr Levalbuterol HCl (Xopenex) 0.63 mg IH [id number] PRN PRN Reason: Wheezing Metoprolol Tartrate (Lopressor) 50 mg PO BRKDIN [facility] Last Admin: 11/14/17 17:07 Dose: 50 mg Pantoprazole Sodium (Protonix Ec Tab) 40 mg PO 0600 [facility] Last Admin: 11/15/17 05:15 Dose: 40 mg Prednisone (Prednisone Tab) 20 mg PO DAILY [facility] Last Admin: 11/14/17 11:05 Dose: 20 mg Promethazine HCl/Codeine (Phenergan/Codeine Oral Syrup) 5 ml PO Q4H PRN PRN Reason: Cough and congestion Last Admin: 11/15/17 05:15 Dose: 5 ml Thiamine HCl (Vitamin B1 Tab) 100 mg PO Q8 [facility] Last Admin: 11/15/17 05:15 Dose: 100 mg Verapamil HCl (Calan Tab) 40 mg PO TID [facility] Last Admin: 11/14/17 17:07 Dose: 40 mg - Labs Labs: 11/11/17 06:20 11/14/17 07:00 PT 12.3 SECONDS (9.4-12.5) 11/07/17 10:39 INR 1.07 (0.93-1.08) 11/07/17 10:39 APTT 33.1 Seconds (25.1-36.5) 11/07/17 10:39 - Constitutional Appears: No Acute Distress - Head Exam Head Exam: ATRAUMATIC, NORMOCEPHALIC - Respiratory Exam Respiratory Exam: Clear to Ausculation Bilateral, NORMAL BREATHING PATTERN - Cardiovascular Exam Cardiovascular Exam: +S1, +S2 - GI/Abdominal Exam GI & Abdominal Exam: Soft, Normal Bowel Sounds. absent: Tenderness - Extremities Exam Extremities Exam: Pedal Edema - Neurological Exam Neurological Exam: Alert, Awake, Oriented x3 Assessment and Plan - Assessment and Plan (Free Text) Assessment: Legionella Pneumonia Encephalitis Elevated LFTs SVT/AFib now in sinus rhythm HTN Electrolyte imbalance - resolved Plan: Urine for legionella antigen is positive. Patient's electrolytes are now normal. Mental status has improved. Patient will be discharged today. She will followup in the office next week. Discharge meds: Maxzide one tab twice a week Levaquin 750 mg daily for 10 days Prednisone 10 mg daily for 5 days, then 1/2 tab for 5 days, then STOP Verapamil 120 mg daily LFTs will be repeated and followed up as an outpatient.
[2017-11-15 08:26] VITALS: TEMP 97.9
[2017-11-15 09:14] VITALS: BP 136/72
--- NOTE | 2017-11-15 13:33 | PN ---
DATE: 11/15/2017 SUBJECTIVE: Patient is in bed, in no acute distress, nontoxic. PHYSICAL EXAMINATION: VITAL SIGNS: On exam, temperature is 98, blood pressure is 113/70, respiratory rate of 20. HEENT: Unremarkable. NECK: Supple. LUNGS: Have decreased breath sounds. HEART: Normal S1, S2. ABDOMEN: Soft. LABORATORY EXAMINATION: Reveals a white count of 7.1, hemoglobin of 10, platelets of 199. Chemistries reveal a BUN of 12, creatinine of 0.6 and the urinalysis is noted and serology is positive. Microbiology is reviewed. Dr. Carter's note is reviewed from today. Dr. Andrews's note is reviewed. ASSESSMENT AND PLAN: A 62-year-old female who is a long-time ex-smoker admitted with change in mental status and report of negative chest x-ray. No fevers initially, was found to have sepsis with Legionella pneumonia with acute encephalopathy and with severe sepsis with complete 14 days of p.o. Levaquin. Anjel Vaughn MD
[2017-11-16 12:32] LABS: SOURCE: CEREBROSPINAL FLUID
== END 2017-11-15 10:01 | disposition home or self-care (01) | DRG 871 ==
LOC: ED 10:05 → ERH 12:14 → 2RSO 14:47 → 5RSO 11-12 19:01
PROVIDERS: ADMIT Internal Medicine; ATTEND Internal Medicine
PROC: 05H533Z Insertion of Infusion Device into Right Subclavian Vein, Percutaneous Approach (ICD-10-PCS; 2017-11-08)
PROC: B546ZZA Ultrasonography of Right Subclavian Vein, Guidance (ICD-10-PCS; 2017-11-08)
PROC: 009U3ZX Drainage of Spinal Canal, Percutaneous Approach, Diagnostic (ICD-10-PCS; principal; 2017-11-10)
PROC: B01BZZZ Fluoroscopy of Spinal Cord (ICD-10-PCS; 2017-11-10)
DX: A41.9 Sepsis, unspecified organism (principal); A48.1 Legionnaires' disease; G93.40 Encephalopathy, unspecified; A86 Unspecified viral encephalitis; E87.1 Hypo-osmolality and hyponatremia; I47.1 Supraventricular tachycardia; R65.20 Severe sepsis without septic shock; I10 Essential (primary) hypertension; I48.91 Unspecified atrial fibrillation; S00.31XA Abrasion of nose, initial encounter; E87.6 Hypokalemia; H91.92 Unspecified hearing loss, left ear; H66.90 Otitis media, unspecified, unspecified ear; D50.9 Iron deficiency anemia, unspecified; E83.39 Other disorders of phosphorus metabolism; R63.0 Anorexia; E66.9 Obesity, unspecified; Z68.35 Body mass index [BMI] 35.0-35.9, adult; W06.XXXA Fall from bed, initial encounter; Y92.003 Bedroom of unspecified non-institutional (private) residence as the place of occurrence of the external cause; Z87.891 Personal history of nicotine dependence; Z88.2 Allergy status to sulfonamides